=== PATIENT | female | born 2000 | race Caucasian/White ===

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

== ENCOUNTER → 2022-03-15 15:19 | Outpatient (CLI) | payer BC, SELFPAY ==
[2022-03-15 17:04] LABS: HCG,Quantitative < 2 mIU/ml (0-5.42)
[2022-03-17 11:14] LABS: Progesterone 0.2 ng/mL (.)
== END ==
LOC: LAB 15:20
PROVIDERS: PCP Internal Medicine Adolescent Medicine; Visit Provider Nurse Practitioner Obstetrics & Gynecology
DX: N92.6 Irregular menstruation, unspecified (principal); Z32.00 Encounter for pregnancy test, result unknown
CPT/HCPCS: 36415; 84144; 84702

== ENCOUNTER → 2022-04-23 08:53 | Outpatient (CLI) | payer BC, SELFPAY ==
--- NOTE | 2022-04-23 08:53 | US_ITS ---
PROCEDURE INFORMATION: Exam: US Left Breast, Complete, Abscess Evaluation Exam date and time: 04/23/2022 9:27 AM Age: 22 years old Clinical indication: Breast pain; Prior surgery; Surgery date: 6+ months; Additional info: Left breast cyst, tenderness TECHNIQUE: Imaging protocol: Left Ultrasound of the breast with image documentation. All quadrants and retroareolar regions evaluated. Exam focused on the search and evaluation for abscess. Exam is an emergent request and a non-BIRADS study. Total images: 25 COMPARISON: US BREAST LT LIMITED 12/26/2020 11:24 AM FINDINGS: Breast: No fluid collection to suggest abscess. Left axillary lymphadenopathy is present measuring up to 1.2 cm. IMPRESSION: 1. No evidence of abscess. Recommend correlation with mammography. 2. Left axillary lymphadenopathy.
--- NOTE | 2022-04-23 08:53 | US_ITS ---
FINAL REPORT CLINICAL HISTORY: Right upper quad pain FINDINGS: Sonographic images of the right upper quadrant were obtained. The pancreas is partially obscured.The liver has an unremarkable appearance.The gallbladder appears normal without evidence of gallstones.There is no evidence of biliary ductal dilatation.The common duct measures 2 mm. Limited images of the right kidney are unremarkable. IMPRESSION: Unremarkable right upper quadrant ultrasound. Reviewed, Interpreted and Dictated by Flex Jj III, MD Transcribed by Mally Duenas Authenticated and [facility]
== END ==
LOC: RAD 08:53
PROVIDERS: PCP Internal Medicine Adolescent Medicine; Visit Provider Nurse Practitioner Obstetrics & Gynecology
DX: N60.02 Solitary cyst of left breast (principal); N60.11 Diffuse cystic mastopathy of right breast; N60.12 Diffuse cystic mastopathy of left breast; N64.4 Mastodynia; R10.11 Right upper quadrant pain
CPT/HCPCS: 76641; 76705

== ENCOUNTER 2022-05-26 01:53 | Emergency (ER) | payer BC, SELFPAY ==
[2022-05-26 01:57] VITALS: BP 134/68; PULSE 106; O2SAT 99
[2022-05-26 02:00] VITALS: BP 132/76; PULSE 81; RESP 15; TEMP 36.8; O2SAT 98; BMI 30.2
[2022-05-26 02:19] LABS: Coronavirus 19, PCR Not Detected (NotDetected); Influenza A, PCR Not Detected (NotDetected); Influenza B, PCR Not Detected (NotDetected)
[2022-05-26 02:29] LABS: Adenovirus F 40/41, stool Not Detected (NotDetected); Astrovirus Not Detected (NotDetected); Campylobacter Not Detected (NotDetected); Clostridium Difficile A/B, PCR Not Detected (NotDetected); Cryptosporidium Not Detected (NotDetected); Cyclospora Cayetanesis Not Detected (NotDetected); Entamoeba histolytica Not Detected (NotDetected); Enteroaggregative E coli Not Detected (NotDetected); Enteropathogenic E coli Not Detected (NotDetected); Enterotoxigenic E coli Not Detected (NotDetected); Giardia lamblia Not Detected (NotDetected); Norovirus Not Detected (NotDetected); Plesimonas Shigalloides, PCR Not Detected (NotDetected); Rotavirus A Not Detected (NotDetected); Salmonella, PCR Not Detected (NotDetected); Sapovirus Not Detected (NotDetected); Shiga-like toxin E coli Not Detected (NotDetected); Shigella Enterovasive E coli Not Detected (NotDetected); Vibrio Cholerae Not Detected (NotDetected); Vibrio, PCR Not Detected (NotDetected); Yersinia Entercolitica, PCR Not Detected (NotDetected)
[2022-05-26 02:38] LABS: Basophils % 0.2 % (0.1-2.0); Eosinophils # 0.2 K/mm3 (0.0-0.4); Eosinophils % 1.8 % (0.1-12.0); Hematocrit 44.9 % (37.0-47.0); Lymphocytes # 1.4 K/mm3 (0.7-4.5); Lymphocytes % 12.5 % (10-50); Mean Corpuscular HGB Conc 33.5 g/dL (31.8-35.4); Mean Corpuscular Hemoglobin 29.7 pg (27.0-31.2); Mean Corpuscular Volume 88.4 fl (81-99); Mean Platelet Volume 7.1 fl (7.4-10.4); Monocytes # 0.4 K/mm3 (0.1-1.0); Monocytes % 3.5 % (1.7-9.3); Neutrophils # 9.3 K/mm3 (1.8-7.8); Neutrophils % 81.9 % (37.0-80.0); Platelet Count 361 K/mm3 (142-424); Red Blood Count 5.07 M/mm3 (4.20-5.40); Red Cell Distribution Width 12.5 % (11.5-17.5); White Blood Count 11.4 K/mm3 (4.5-13.0)
[2022-05-26 02:38] LABS: Strep Scrn Group A (Rapid) Negative (Negative)
[2022-05-26 02:44] LABS: Alanine Aminotransferase 26 U/L (12-78); Albumin Level 4.7 g/dl (3.5-5.0); Albumin/Globulin Ratio 1.5 (1.1-1.8); Alkaline Phosphatase 71 U/L (38-126); Anion Gap 12.8 mEq/L (5-15); Aspartate Amino Transferase 34 U/L (14-36); Bilirubin,Total 0.9 mg/dl (0.2-1.3); Blood Urea Nitrogen 12 mg/dl (7-17); Calcium 8.8 mg/dl (8.4-10.2); Carbon Dioxide 26 mmol/L (22.0-30.0); Chloride 101 mmol/L (98-107); Creatinine Clearance Estimated 167 mL/min (50-200); Estimated Glomerular Filt Rate 107 ml/min (>60); GFR (African American) 129 ML/MIN (>60); Globulin 3.2 g/dL (1.3-3.2); Glucose 104 mg/dl (74-100); Potassium 3.8 mmoL/L (3.5-5.1); Sodium 136 mmol/L (136-145); Total Protein,Serum 7.9 g/dl (6.3-8.2)
--- NOTE | 2022-05-26 03:16 | HMH.EDNVD ---
Discharge Plan Disposition Patient Disposition: Home, Self-Care Chief Complaint: Nausea/Vomiting/Diarrhea Prescriptions Prescriptions: No Action bupropion HCl [Wellbutrin SR] 150 mg tablet sustained-release 12 hr 150 mg PO DAILY Qty: 60 4RF hydroxyzine pamoate [Vistaril] 25 mg capsule 25 mg PO TID PRN (Reason: itching) Qty: 60 0RF Referrals Follow up/Referrals: Provider,Referral, MD [Primary Care Provider] - See instructions Clinical Impressions Clinical Impression: Gastroenteritis Instructions Patient Instructions: DI for Diarrhea and Traveler's Diarrhea -- Adult Discharge ED Provider: Thi (ED)Jose David Nausea/Vomiting/Diarrhea HPI General Chief complaint: Nausea/Vomiting/Diarrhea Stated complaint: Vomiting, Diarrhea Time Seen by Provider: 05/26/22 03:16 Mode of Arrival: Family Vehicle Source of Information: Patient, Spouse and Medical Record Limitations: No Limitations Description of Symptoms (Recalled from ER Triage Doc. by RN): 22 yo female presents with chief complaint of n/v/d x 3 hours and sinus infection symptoms x a couple of days; afebrile; patient maintains that the diarrhea is uncontrollable. Denies taking any medications other than ibuprofen earlier this date. Denies pmh. denies past surg h/o. states menses just occurred.denies abd pain except when vomiting or having a diarhhea episode History of Present Illness HPI Narrative: over the last few hrs has vomiting and diarrhea w/o fever or blood - no known exposure complaint: nausea, vomiting and diarrhea Onset (ago): hour(s) Description of Vomiting: watery Associated Abdominal Pain: Yes Location of pain: diffuse Severity: moderate Quality: cramping Associated symptoms: denies other symptoms Related Data Previous Rx's Medication Instructions Recorded bupropion HCl 150 mg tablet,12 hr 150 mg PO DAILY #60 ea 11/24/21 sustained-release (Wellbutrin SR) hydroxyzine pamoate 25 mg capsule 25 mg PO TID PRN itching #60 caps 11/24/21 (Vistaril) Allergies Allergy/AdvReac Type Severity Reaction Status Date / Time No Known Allergies Allergy Verified 04/08/22 15:01 [facility] Disclaimer: The information contained in this section may have been updated after the patient was seen, as this information can be updated by other users. Medical History (Updated 05/26/22 @ 05:25 by Jose David FRANKLIN)MD) Anxiety Depression Surgical History (Updated 04/08/22 @ 15:06 by DON Malave) History of breast surgery Family History Mother Cancer Ovarian Social History (Updated 04/08/22 @ 15:07 by DON Malave) Smoking Status: Current every day smoker tobacco type: e-cigarettes alcohol intake: current substance use type: denies use current occupational status: other Travel in the last 8 weeks: None household members: family housing: house ROS Obtained: Yes All systems reviewed & no additional complaints except as documented Physical Exam General General appearance: alert Head Head exam: normocephalic Eye Eye exam: Present PERRL and EOMI ENT ENT exam: Present mucous membranes moist Neck Neck exam: Absent trachea midline Respiratory Respiratory exam: Present normal lung sounds bilaterally Cardiovascular Cardiovascular exam: Present regular rate Abdominal Exam Abdominal exam: Present soft and tenderness; Absent guarding or rebound Abdominal tenderness: Present diffuse and moderate Extremities Exam Extremities exam: Present full ROM Neurological Exam Neurological exam: Present alert, oriented X3 and CN II-XII intact; Absent motor sensory deficit Psychiatric Psychiatric exam: Present normal affect Skin Skin exam: Absent rash Medical Decision Making Medical Records Medical records reviewed: Yes I reviewed the patient's medical records. Hay Inquiry Pt receiving controlled substance: No Vital Signs: 05/26/22 02:00 05/26
[2022-05-26 05:24] VITALS: BP 134/68; PULSE 75; RESP 19; TEMP 36.8; O2SAT 98
== END 2022-05-26 05:34 | disposition home or self-care (01) ==
PROVIDERS: Emergency Provider Emergency Medicine
DX: K52.9 Noninfective gastroenteritis and colitis, unspecified (principal); F17.290 Nicotine dependence, other tobacco product, uncomplicated
CPT/HCPCS: 80053; 85025; 87430; 87507; 96360; 96361; 96374; 96375; 99284; 99285; C9803; J2405; U0003; U0005

== ENCOUNTER 2022-05-31 18:17 | Emergency (ER) | payer BC, SELFPAY ==
[2022-05-31 18:30] VITALS: BP 105/78; PULSE 89; RESP 16; TEMP 36.7; O2SAT 98; BMI 30.2
--- NOTE | 2022-05-31 18:43 | EXP.UTC ---
Discharge Plan Disposition Patient Disposition: Home, Self-Care Condition: Good Prescriptions Prescriptions: New fluticasone propionate [Flonase Allergy Relief] 50 mcg/actuation spray,suspension 1 - 2 spray intranasal DAILY Qty: 16 0RF Rx Instructions: administer into each nostril daily No Action escitalopram oxalate 10 mg tablet 10 mg PO DAILY Label Comments: TAKE 1 TABLET BY MOUTH ONCE DAILY DIRECTED FOR 90 DAYS Referrals Follow up/Referrals: Provider,Referral, MD [Primary Care Provider] - See instructions Activity Restrictions/Add. 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 Return if needed Straight to ER if any life threatening symptoms Clinical Impressions Clinical Impression: Allergic rhinitis Qualifiers: Allergic rhinitis trigger: unspecified Allergic rhinitis seasonality: seasonal Qualified Code(s): J30.2 - Other seasonal allergic rhinitis Stand Alone Forms Stand Alone Forms: Work/School Release Instructions Patient Instructions: Allergic Rhinitis, DI for Allergic Rhinitis Discharge ED Provider: Mari Shelton Rajendra [facility] HPI General Stated complaint: Wants allergy Shot Time Seen by Provider: 05/31/22 18:43 History of Present Illness Provider Complaint: Patient states that her allergies are bothering her and sometimes when they get this bad she has to come in and get a steriod shot States that she has been having nasal congestion and at times it will run but for the last few days it has been stopped up States that she is also late on her period and wants a pregancy test Related Data Home Medications Medication Instructions Recorded Confirmed escitalopram oxalate 10 mg tablet 10 mg PO DAILY Anxiety 05/31/22 05/31/22 Previous Rx's Medication Instructions Recorded fluticasone propionate 50 1 - 2 spray intranasal DAILY #16 05/31/22 mcg/actuation nasal grams spray,suspension (Flonase Allergy Relief) Allergies Allergy/AdvReac Type Severity Reaction Status Date / Time No Known Allergies Allergy Verified 05/31/22 18:44 [facility] Disclaimer: The information contained in this section may have been updated after the patient was seen, as this information can be updated by other users. Medical History (Updated 05/31/22 @ 18:48 by Mari Shelton APRN) Anxiety Depression Surgical History History of breast surgery Family History Mother Cancer Ovarian Social History Smoking Status: Current every day smoker tobacco type: e-cigarettes alcohol intake: current substance use type: denies use current occupational status: other Travel in the last 8 weeks: None household members: family housing: house ROS Obtained: Yes All systems reviewed & no additional complaints except as documented and Yes Systems reviewed as appropriate & no additional complaints except as documented Constitutional Constitutional: Reports system reviewed and no additional complaints, except as documented and Reports as per HPI ENT Ears, Nose, Mouth, and Throat: Reports system reviewed and no additional complaints, except as documented, Reports as per HPI, Reports nasal congestion and Reports nasal discharge Cardiovascular Cardiovascular: Reports system reviewed and no additional complaints, except as documented and Reports as per HPI Respiratory Respiratory: Reports system reviewed and no additional complaints, except as documented and Reports as per HPI Gastrointestinal Gastrointestingal: Reports system reviewed and no additional complaints, except as documented and as per HPI Genitourinary Female Genitourinary: Reports system reviewed and no additional complaints, except as documented and Reports as per HPI Comments: also she is late on her
[2022-05-31 19:08] LABS: HCG Qualitative, Serum Negative (Negative)
[2022-05-31 19:39] VITALS: BP 105/78; PULSE 89; RESP 16; TEMP 36.7; O2SAT 98
== END 2022-05-31 19:39 | disposition home or self-care (01) ==
PROVIDERS: Emergency Provider Nurse Practitioner
DX: J30.2 Other seasonal allergic rhinitis (principal); F17.290 Nicotine dependence, other tobacco product, uncomplicated
CPT/HCPCS: 84703; 99212; 99214; G0463

== ENCOUNTER 2022-11-26 23:37 | Emergency (ER) | payer BC, SELFPAY ==
[2022-11-26 23:49] VITALS: RESP 18; TEMP 36.7; O2SAT 97; BMI 30.9
[2022-11-26 23:56] VITALS: BP 111/72; PULSE 113
--- NOTE | 2022-11-27 00:04 | HMH.EDGENADL ---
Discharge Plan Disposition Patient Disposition: Home, Self-Care Condition: Good Prescriptions Prescriptions: New ondansetron 4 mg tablet,disintegrating 4 mg PO Q8H PRN (Reason: nausea and vomiting) 4 Days Qty: 12 0RF Activity Restrictions/Add. Instructions Additional Instructions/Restrictions: You were evaluated in the emergency department today. Please fern picker your prescription for Zofran to take at home as needed for nausea and vomiting. Hydrate at home is much as possible. Eat a bland diet until your symptoms have resolved. Return to the emergency department for new or worsening symptoms. Follow with your primary care provider over the next 3 days for reassessment. Clinical Impressions Clinical Impression: Gastroenteritis Stand Alone Forms Stand Alone Forms: Work/School Release Instructions Patient Instructions: DI for Diarrhea and Traveler's Diarrhea -- Adult, DI for Nausea -- Adult Discharge ED Provider: Hillary Han General Adult HPI General Chief complaint: Nausea/Vomiting/Diarrhea Stated complaint: N/V,diarrhea Time Seen by Provider: 11/26/22 23:43 Mode of Arrival: Ambulatory Source of Information: Patient Limitations: No Limitations Description of Symptoms (Recalled from ER Triage Doc. by RN): Since 4am patient has had several amounts of vomiting and diarrhea. History of Present Illness HPI narrative: This patient is a 22-year-old female who denies significant past medical history presenting to the emergency department for evaluation with concern for nausea, vomiting, and diarrhea since 4 AM. Diarrhea is nonbloody and her emesis is nonbloody and nonbilious. She denies any significant abdominal pain aside from cramping associated with nausea vomiting and soreness from vomiting. She denies any other concerns at this time. She took Pepto-Bismol and Imodium at home with no relief. Related Data Previous Rx's Medication Instructions Recorded ondansetron 4 mg disintegrating 4 mg PO Q8H PRN nausea and 11/27/22 tablet vomiting 4 days #12 tabs Allergies Allergy/AdvReac Type Severity Reaction Status Date / Time No Known Allergies Allergy Verified 05/31/22 18:44 [facility] Disclaimer: The information contained in this section may have been updated after the patient was seen, as this information can be updated by other users. Medical History Anxiety Depression Surgical History History of breast surgery Family History Mother Cancer Social History Smoking Status: Current every day smoker tobacco type: e-cigarettes alcohol intake: current substance use type: denies use current occupational status: other Travel in the last 8 weeks: None household members: family housing: house ROS Obtained: Yes All systems reviewed & no additional complaints except as documented Physical Exam General General appearance: alert and in no apparent distress Head Head exam: atraumatic and normocephalic Eye Eye exam: Present normal appearance, PERRL and EOMI ENT ENT exam: Present normal exam, normal oropharynx, mucous membranes moist and normal external ear exam Neck Neck exam: Present normal inspection, full ROM and trachea midline; Absent tenderness Chest Chest inspection: Present normal inspection and symmetric chest wall rise; Absent tenderness Respiratory Respiratory exam: Present normal lung sounds bilaterally; Absent respiratory distress, wheezes, stridor or accessory muscle use Cardiovascular Cardiovascular exam: Present regular rate and normal rhythm Abdominal Exam Abdominal exam: Present soft; Absent distention, tenderness or guarding Extremities Exam Extremities exam: Present normal inspection, full ROM and normal capillary refill; Absent tenderness or edema Back E
[2022-11-27 00:05] LABS: Microscopic, Urine URINE MICROSCOPIC (MICROSCOPIC)
[2022-11-27 00:12] LABS: Appearance,Urine CLEAR (Clear); Blood, Urine TRACE-I (Negative); Color,Urine YELLOW (Yellow); Glucose,Urine (UA) Negative (Negative); Ketones,Urine Negative (Negative); Leukocyte Esterase,Urine Negative (Negative); Nitrate,Urine Negative (Negative); Protein,Urine TRACE (Negative); Specific Gravity, Urine 1.025 (1.005-1.030); Urobilinogen,Urine 0.2 EU/dl (0.2)
[2022-11-27 00:14] LABS: Bilirubin,Urine 1+ (Negative)
[2022-11-27 00:16] LABS: RBC,Urine Occasional #/hpf (0-3)
[2022-11-27 00:47] LABS: Urine Pregnancy, HCG Qual. Negative (Negative)
[2022-11-27 00:53] VITALS: BP 115/75; PULSE 90; RESP 18; TEMP 36.8
== END 2022-11-27 00:57 | disposition home or self-care (01) ==
PROVIDERS: Emergency Provider Emergency Medicine
DX: K52.9 Noninfective gastroenteritis and colitis, unspecified (principal); R11.2 Nausea with vomiting, unspecified; F17.290 Nicotine dependence, other tobacco product, uncomplicated; F41.9 Anxiety disorder, unspecified; F32.A Depression, unspecified
CPT/HCPCS: 81001; 81025; 99283

== ENCOUNTER 2023-01-07 09:27 | Emergency (ER) | payer BC, SELFPAY ==
[2023-01-07 10:30] VITALS: BP 133/88; PULSE 86; RESP 18; TEMP 36.7; O2SAT 98; BMI 33.8
--- NOTE | 2023-01-07 10:53 | EXP.UTC ---
Discharge Plan Disposition Patient Disposition: Home, Self-Care Condition: Good Prescriptions Prescriptions: New prednisone 10 mg tablet 10 mg PO BID 3 Days Qty: 6 0RF azithromycin [Zithromax] 250 mg tablet 250 mg PO UD DOSE PK Qty: 6 0RF Rx Instructions: Take two (2) tablets today, then one (1) tablet days #2 thru #5 [id number] [Bromfed DM] 2-30-10 mg/5 mL Syrup 5 ml PO Q6H PRN (Reason: Cough) Qty: 240 0RF Referrals Follow up/Referrals: Provider,Referral, MD [Primary Care Provider] - See instructions Activity Restrictions/Add. Instructions Additional Instructions/Restrictions: Drink plenty of fluids. Take tylenol or ibuprofen for pain or fever. Take the medications as directed. Follow up with your regular doctor. GO TO THE ER FOR ANY WORSENING SYMPTOMS Clinical Impressions Clinical Impression: Pharyngitis, Sinusitis, Acute viral syndrome Stand Alone Forms Stand Alone Forms: Work/School Release Instructions Patient Instructions: DI for Pharyngitis/Tonsillopharyngitis -- Adult, DI for Sinusitis Discharge ED Provider: Preet Humphries [facility] General Stated complaint: drainage sore throat Mode of Arrival: Ambulatory Source of Information: Patient Limitations: No Limitations Time Seen by Provider: 01/07/23 10:53 Description of Symptoms (Recalled from Triage Doc. by RN): sore throat, stomach ache, stuffy nose, MACDONALD, and had a fever. HEENT Symptoms (Recalled from RN notes): Yes Resp Symptoms (Recalled from RN notes): No Skin Symptoms (Recalled from RN notes): No MS Symptoms (Recalled from RN notes): No Functional Status (Recalled from RN notes): n/a History of Present Illness Provider Complaint: She states that for the past 2 days she has had sore throat, GI upset, stuffy nose, MACDONALD, and a low grade fever. Related Data Previous Rx's Medication Instructions Recorded azithromycin 250 mg tablet 250 mg PO UD DOSE PK #6 tabs 01/07/23 (Zithromax) [id number]-gjkjsdtvbowoxgv-DP 5 ml PO Q6H PRN Cough #240 mL 01/07/23 2 mg-30 mg-10 mg/5 mL oral syrup (Bromfed DM) prednisone 10 mg tablet 10 mg PO BID 3 days #6 tabs 01/07/23 Allergies Allergy/AdvReac Type Severity Reaction Status Date / Time No Known Allergies Allergy Verified 01/07/23 10:51 Worker's Comp Is this a Worker's Comp case?: No [facility] Disclaimer: The information contained in this section may have been updated after the patient was seen, as this information can be updated by other users. Medical History Anxiety Depression Surgical History History of breast surgery Family History Mother Cancer Social History Smoking Status: Current every day smoker tobacco type: e-cigarettes alcohol intake: current substance use type: denies use current occupational status: other Travel in the last 8 weeks: None household members: family housing: house ROS Obtained: Yes All systems reviewed & no additional complaints except as documented Constitutional Constitutional: Reports chills and Reports fever(s) Eyes Eyes: Denies eye discharge ENT Ears, Nose, Mouth, and Throat: Reports as per HPI Cardiovascular Cardiovascular: Denies chest pain Respiratory Respiratory: Denies chest congestion and Reports cough Gastrointestinal Gastrointestingal: Reports nausea; Denies abdominal pain, constipation, cramping, diarrhea or vomiting Musculoskeletal Musculoskeletal: Denies arthralgias Integumentary/Breasts Skin/Breast: Denies rash Neurologic Neurologic: Denies paresthesias Physical Exam General General appearance: alert and in no apparent distress Head Head exam: atraumatic, normocephalic and normal inspection Eye Eye exam: Present normal appearance, PERRL and EOMI EN
[2023-01-07 10:59] LABS: UTC Strep Screen (Rapid) Negative (Negative)
[2023-01-07 11:20] VITALS: BP 133/88; PULSE 86; RESP 18; TEMP 36.7; O2SAT 98
== END 2023-01-07 11:20 | disposition home or self-care (01) ==
PROVIDERS: Emergency Provider Nurse Practitioner Family
DX: J01.90 Acute sinusitis, unspecified (principal); J02.9 Acute pharyngitis, unspecified; R09.82 Postnasal drip; R10.9 Unspecified abdominal pain; R50.9 Fever, unspecified; R51.9 Headache, unspecified; F17.290 Nicotine dependence, other tobacco product, uncomplicated
CPT/HCPCS: 87635; 87880; 99212; 99214; G0463

== ENCOUNTER 2023-03-06 12:59 | Emergency (ER) | payer BC, SELFPAY ==
[2023-03-06 13:15] VITALS: BP 124/82; PULSE 104; RESP 18; TEMP 36.9; O2SAT 100; BMI 33.7
--- NOTE | 2023-03-06 13:19 | ED_ITS ---
Discharge Plan Disposition Patient Disposition: Home, Self-Care Condition: Good Prescriptions Prescriptions: New prednisone 10 mg tablet 10 mg PO BID 3 Days Qty: 6 0RF amoxicillin [amoxicillin] 875 mg tablet 875 mg PO Q12H Qty: 20 0RF [id number]-maubcazfv-FT [Bromfed DM] 2-30-10 mg/5 mL Syrup 5 ml PO Q6H PRN (Reason: Cough) Qty: 240 0RF No Action Vraylar 1.5 mg capsule 1.5 mg PO DAILY Qty: 30 2RF Referrals Follow up/Referrals: Denice Lancaster PA [Primary Care Provider] - See instructions Activity Restrictions/Add. Instructions Additional Instructions/Restrictions: Drink plenty of fluids. Take tylenol or ibuprofen for pain or fever. Take the medications as directed. Follow up with your regular doctor. GO TO THE ER FOR ANY WORSENING SYMPTOMS Clinical Impressions Clinical Impression: Strep throat Stand Alone Forms Stand Alone Forms: Work/School Release Instructions Patient Instructions: Strep Throat, DI for Strep Throat Discharge ED Provider: Preet Humphries [facility] General Stated complaint: Sore throat,cough,body aches Time Seen by Provider: 03/06/23 13:19 History of Present Illness Provider Complaint: She states that for the past 2 days she has had sore throat, chills, low grade fever and malaise. Related Data Previous Rx's Medication Instructions Recorded cariprazine 1.5 mg capsule 1.5 mg PO DAILY #30 caps 02/21/23 (Vraylar) amoxicillin 875 mg tablet 875 mg PO Q12H #20 tabs 03/06/23 zwizthizlvnqavf-ehtcxowqeycxooy-PG 5 ml PO Q6H PRN Cough #240 mL 03/06/23 2 mg-30 mg-10 mg/5 mL oral syrup (Bromfed DM) prednisone 10 mg tablet 10 mg PO BID 3 days #6 tabs 03/06/23 Allergies Allergy/AdvReac Type Severity Reaction Status Date / Time No Known Allergies Allergy Verified 03/06/23 13:27 [facility] Disclaimer: The information contained in this section may have been updated after the patient was seen, as this information can be updated by other users. Medical History (Updated 03/06/23 @ 13:56 by Preet Humphries APRN) Anxiety Depression Traumatic brain injury Surgical History History of breast surgery Family History Mother Cancer Social History Smoking Status: Current every day smoker tobacco type: e-cigarettes alcohol intake: current substance use type: denies use current occupational status: other Travel in the last 8 weeks: None household members: family housing: house ROS Obtained: Yes All systems reviewed & no additional complaints except as documented Constitutional Constitutional: Reports chills and Reports fever(s) Eyes Eyes: Denies eye discharge ENT Ears, Nose, Mouth, and Throat: Reports as per HPI Cardiovascular Cardiovascular: Denies chest pain Respiratory Respiratory: Denies chest congestion and Reports cough Gastrointestinal Gastrointestingal: Reports nausea; Denies abdominal pain, constipation, cramping, diarrhea or vomiting Musculoskeletal Musculoskeletal: Denies arthralgias Integumentary/Breasts Skin/Breast: Denies rash Neurologic Neurologic: Denies paresthesias Physical Exam General General appearance: alert and in no apparent distress Head Head exam: atraumatic, normocephalic and normal inspection Eye Eye exam: Present normal appearance, PERRL and EOMI ENT ENT exam: Present mucous membranes moist and normal external ear exam Expanded ENT Exam TM/Canal exam: Bilateral TM: erythema and bulging Nose exam: Absent sinus tenderness Mouth exam: Present normal external inspection; Absent drooling Teeth exam: Present normal inspection Throat exam: Present tonsillar erythema, tonsillomegaly and tonsillar exudate Neck Neck exam: Present normal inspection, full ROM and trachea midline; Absent tenderness, meningismus or lymphadenopathy Chest Chest inspection: Present normal inspection and symmetric chest wall rise; Absent tenderness Respiratory Respiratory exam: Present normal lung sounds bilaterally; Absent respiratory distress, wheezes, stridor or accessory muscle use Cardiovascular Cardiovascular exam: Present regular rate and normal rhythm; Absent systolic murmur or diastolic murmur Abdominal Exam Abdominal exam: Present soft and normal bowel sounds; Absent distention, tenderness, guarding, rebound or rigidity Extremities Exam Extremities exam: Present normal inspection and normal capillary refill; Absent calf tenderness Back Exam Back exam: Present normal inspection and full ROM; Absent tenderness, CVA tenderness (R) or CVA tenderness (L) Neurological Exam Neurological exam: Present alert, oriented X3 and CN II-XII intact Psychiatric Psychiatric exam: Present normal affect and normal mood Skin Skin exam: Present warm, dry, intact and normal color Medical Decision Making Medical Records Medical records reviewed: No I reviewed the patient's medical records. Hay Inquiry Pt receiving controlled substance: No Lab Data Lab results reviewed: Yes I reviewed the patient's lab results.
[2023-03-06 13:41] LABS: UTC Influenza A Antigen Negative (Negative); UTC Influenza B Antigen Negative (Negative); UTC Strep Screen (Rapid) Positive (Negative)
[2023-03-06 14:05] VITALS: BP 124/82; PULSE 104; RESP 18; TEMP 36.9; O2SAT 100
== END 2023-03-06 14:05 | disposition home or self-care (01) ==
PROVIDERS: Emergency Provider Nurse Practitioner Family; PCP Physician Assistant
DX: J02.0 Streptococcal pharyngitis (principal); R07.0 Pain in throat; R50.9 Fever, unspecified; R05.9 Cough, unspecified; R53.81 Other malaise; F17.290 Nicotine dependence, other tobacco product, uncomplicated
CPT/HCPCS: 87804; 87880; 99212; 99214; G0463

== ENCOUNTER 2023-03-09 11:48 | Outpatient (CLI) | payer BC, SELFPAY ==
[2023-03-09 12:08] LABS: Basophils # 0.1 K/mm3 (0-0.2); Eosinophils # 0.2 K/mm3 (0.0-0.4); Eosinophils % 2.5 % (0.1-12.0); Hematocrit 41.5 % (37.0-47.0); Lymphocytes # 4.6 K/mm3 (0.7-4.5); Lymphocytes % 60.4 % (10-50); Mean Corpuscular HGB Conc 33.8 g/dL (31.8-35.4); Mean Corpuscular Hemoglobin 29.9 pg (27.0-31.2); Mean Corpuscular Volume 88.6 fl (81-99); Mean Platelet Volume 7.4 fl (7.4-10.4); Monocytes # 0.4 K/mm3 (0.1-1.0); Monocytes % 5.8 % (1.7-9.3); Neutrophils # 2.3 K/mm3 (1.8-7.8); Neutrophils % 30.4 % (37.0-80.0); Platelet Count 373 K/mm3 (142-424); Red Blood Count 4.68 M/mm3 (4.20-5.40); Red Cell Distribution Width 13.3 % (11.5-17.5); White Blood Count 7.6 K/mm3 (4.8-10.8)
[2023-03-09 12:10] LABS: MANUAL DIFFERENTIAL MANUAL DIFFERENTIAL (MANUAL DIFF)
[2023-03-09 12:11] LABS: Alanine Aminotransferase 22 U/L (12-78); Albumin Level 4.1 g/dl (3.5-5.0); Albumin/Globulin Ratio 1.4 (1.1-1.8); Alkaline Phosphatase 68 U/L (38-126); Anion Gap 10.5 mEq/L (5-15); Aspartate Amino Transferase 25 U/L (14-36); Bilirubin,Total 0.3 mg/dl (0.2-1.3); Blood Urea Nitrogen 11 mg/dl (7-17); Calcium 9.4 mg/dl (8.4-10.2); Carbon Dioxide 26 mmol/L (22.0-30.0); Chloride 107 mmol/L (98-107); Chol/HDL Ratio 2.3 (1-3.5); Cholesterol 164 mg/dl (140-200); Estimated Glomerular Filt Rate 126 ml/min (>60); GFR (African American) 153 ML/MIN (>60); Globulin 2.9 g/dL (1.3-3.2); Glucose 86 mg/dl (74-100); HDL Cholesterol 71 mg/dl (40-60); Potassium 4.5 mmoL/L (3.5-5.1); Sodium 139 mmol/L (136-145); Triglycerides 248 mg/dl (30-150); VLDL Cholesterol 50 mg/dL (0-40)
[2023-03-09 12:25] LABS: Direct LDL Cholesterol 59.99 mg/dL (100-129)
[2023-03-09 12:31] LABS: 25-OH Vitamin D, Total 17.4 ng/mL (30-100)
[2023-03-09 12:42] LABS: Thyroid Stimulating Hormone 1.91 uIU/mL (0.465-4.68)
[2023-03-09 12:56] LABS: Lymphocytes % 61 % (10-50); Monocytes % 6 % (2-9); Neutrophils % 33 % (42-76); Platelet Estimate Normal; RBC Morphology Normal; Total Cells Counted 100
[2023-03-09 13:01] LABS: Vitamin B12 354 pg/mL (239-931)
== END 2023-03-09 23:59 ==
LOC: LAB.DROPOF 11:48
PROVIDERS: PCP Physician Assistant; Visit Provider Physician Assistant
DX: R53.83 Other fatigue (principal); H57.9 Unspecified disorder of eye and adnexa; E55.9 Vitamin D deficiency, unspecified; E66.9 Obesity, unspecified; Z68.33 Body mass index [BMI] 33.0-33.9, adult
CPT/HCPCS: 80053; 80061; 82306; 82607; 84443; 85007; 85025

== ENCOUNTER 2023-03-11 07:19 | Emergency (ER) | payer BC, SELFPAY ==
[2023-03-11 07:32] VITALS: BP 148/92; PULSE 107; RESP 16; TEMP 36.9; O2SAT 98; BMI 33.6
--- NOTE | 2023-03-11 07:43 | ED_ITS ---
Discharge Plan Disposition Patient Disposition: Home, Self-Care Prescriptions Prescriptions: New ondansetron 4 mg tablet,disintegrating 4 mg PO Q8H PRN (Reason: nausea and vomiting) 4 Days Qty: 12 0RF No Action Vraylar 1.5 mg capsule 1.5 mg PO DAILY Qty: 30 2RF cholecalciferol (vitamin D3) 50 mcg (2,000 unit) capsule 50 mcg PO DAILY Qty: 90 3RF ergocalciferol (vitamin D2) 1,250 mcg (50,000 unit) capsule 1,250 mcg PO WEEKLY Qty: 14 3RF amoxicillin [amoxicillin] 875 mg tablet 875 mg PO Q12H Qty: 20 0RF dvjdxkafskhagfe-gytumqioz-VZ [Bromfed DM] 2-30-10 mg/5 mL Syrup 5 ml PO Q6H PRN (Reason: Cough) Qty: 240 0RF Referrals Follow up/Referrals: Denice Lancaster PA [Primary Care Provider] - See instructions Activity Restrictions/Add. Instructions Additional Instructions/Restrictions: You were evaluated in the emergency department today. Please chicken picker your pres cription for Zofran and take as needed for nausea and vomiting. Hydrate is much as possible. Eat a bland diet until your symptoms have resolved. Return to the emergency department for new or worsening symptoms. Clinical Impressions Clinical Impression: Nausea vomiting and diarrhea, Abdominal pain, suprapubic, COVID-19 Stand Alone Forms Stand Alone Forms: Work/School Release Instructions Patient Instructions: DI for Diarrhea and Traveler's Diarrhea -- Adult, DI for Acute Abdominal Pain, DI for Nausea -- Adult, DI for COVID-19 (Suspected or Confirmed ) Discharge ED Provider: Hillary Han General Adult HPI General Chief complaint: Abdominal Pain Stated complaint: vomiting and Diarrhea Time Seen by Provider: 03/11/23 07:32 History of Present Illness HPI narrative: This patient is a 23-year-old female with PCOS presenting to the emergency department for evaluation with concern for nausea, vomiting, diarrhea, and lower abdominal pain. Patient states that she woke up around 1:00 in the morning with nausea and vomiting and states that she is vomited multiple times since then. She is also had multiple episodes of loose, watery stools. Her emesis is nonbloody nonbilious and diarrhea is nonbloody. She denies any abnormal vaginal discharge, urinary symptoms, or other concerns. She states she was having some lower abdominal pain that started after the vomiting. No other concerns noted at this time. Related Data Previous Rx's Medication Instructions Recorded cariprazine 1.5 mg capsule 1.5 mg PO DAILY #30 caps 02/21/23 (Vraylar) amoxicillin 875 mg tablet 875 mg PO Q12H #20 tabs 03/06/23 nkvdgtsuekkdiim-hwqbvgaeocebmyr-AF 5 ml PO Q6H PRN Cough #240 mL 03/06/23 2 mg-30 mg-10 mg/5 mL oral syrup (Bromfed DM) cholecalciferol (vitamin D3) 50 50 mcg PO DAILY #90 caps 03/09/23 mcg (2,000 unit) capsule ergocalciferol (vitamin D2) 1,250 1,250 mcg PO WEEKLY #14 caps 03/09/23 mcg (50,000 unit) capsule ondansetron 4 mg disintegrating 4 mg PO Q8H PRN nausea and 03/11/23 tablet vomiting 4 days #12 tabs Allergies Allergy/AdvReac Type Severity Reaction Status Date / Time No Known Allergies Allergy Verified 03/09/23 08:41 [facility] Disclaimer: The information contained in this section may have been updated after the patient was seen, as this information can be updated by other users. Medical History Anxiety Depression Traumatic brain injury Surgical History History of breast surgery Family History Mother Cancer Social History Smoking Status: Current every day smoker tobacco type: e-cigarettes alcohol intake: current substance use type: denies use current occupational status: other Travel in the last 8 weeks: None household members: family housing: house ROS Obtained: Yes All systems reviewed & no additional complaints except as documented Physical Exam General General appearance: alert and in no apparent distress Head Head exam: atraumatic and normocephalic Eye Eye exam: Present normal appearance, PERRL and EOMI ENT ENT exam: Present normal exam, normal oropharynx, mucous membranes moist and normal external ear exam Neck Neck exam: Present normal inspection, full ROM and trachea midline; Absent tenderness Chest Chest inspection: Present normal inspection and symmetric chest wall rise; Ab sent tenderness Respiratory Respiratory exam: Present normal lung sounds bilaterally; Absent respiratory distress, wheezes, stridor or accessory muscle use Cardiovascular Cardiovascular exam: Present regular rate and normal rhythm Abdominal Exam Abdominal exam: Present soft, tenderness (suprapubic, mild) and normal bowel sounds; Absent distention, guarding, rebound or rigidity Extremities Exam Extremities exam: Present normal inspection, full ROM and normal capillary refill; Absent tenderness or edema Back Exam Back exam: Present normal inspection and full ROM; Absent tenderness Neurological Exam Neurological exam: Present alert, oriented X3, CN II-XII intact and normal gait; Absent motor sensory deficit Psychiatric Psychiatric exam: Present normal affect and normal mood Skin Skin exam: Present warm and dry Medical Decision Making Medical Records Medical records reviewed: Yes I reviewed the patient's medical records. Hay Inquiry Pt receiving controlled substance: No Vital Signs: 03/11/23 07:32 03/11/23 08:30 03/11/23 09:46 Temperature 98.4 F 98.4 F Temperature Source Oral Oral Pulse Rate 87 77 Pulse Rate [Left] 107 H Respiratory Rate 16 18 Blood Pressure 101/57 L 104/61 L Blood Pressure [Right Arm] 148/92 H Blood Pressure Mean [Right Arm] 110 Blood Pressure Source Automatic Cuff Blood Pressure Source [Right Arm] Automatic Cuff Blood Pressure Position Sitting Blood Pressure Position [Right Arm] Sitting 02 Sat by Pulse Oximetry 98 98 Oxygen Delivery Method Room Air Room Air Room Air Lab Data Lab results reviewed: Yes I reviewed the patient's lab results. Lab Results 03/11/23 07:41: WBC 12.2 H D, RBC 4.98, Hgb 14.8, Hct 43.4, MCV 87.1, MCH 29.8, MCHC 34.2, RDW 13.1, Plt Count 416, MPV 7.6, Neut % (Auto) 82.1 H, Lymph % (Auto) 11.0, [place] % (Auto) 3.7, Eos % (Auto) 2.7, Baso % (Auto) 0.5, Neut # (Auto) 10.0 H, Lymph # (Auto) 1.3, [place] # (Auto) 0.5, Eos # (Auto) 0.3, Baso # (Auto) 0.1, Sodium 138, Potassium 4.5, Chloride 106, Carbon Dioxide 26, Anion Gap 10.5, BUN 13, Creatinine 0.60, Estimated Creat Clear 208, Estimated GFR 126, Est GFR ( Amer) 153, Glucose 108 H, Calcium 9.3, Total Bilirubin 0.5, AST 36 D, ALT 40 D, Alkaline Phosphatase 81, Total Protein 8.0, Albumin 4.5, Globulin 3.5 H, Albumin/Globulin Ratio 1.3, Serum HCG, Qual Negative 03/11/23 07:52: SARS-CoV-2 (PCR) Detected A, Influenza A Untype (PCR) Not detected, Influenza Type B (PCR) Not detected 03/11/23 07:41 03/11/23 07:41 Orders (Tests/Meds): ED MEDICATIONS Discontinued Medications Generic Name Dose Route Start Last Admin Trade Name Freq PRN Reason Stop Dose Admin Acetaminophen 1,000 mg 03/11/23 07:36 03/11/23 07:58 Acetaminophen 1,000mg/100ml Vial IV 03/11/23 07:37 1,000 mg ONCE ONE Administration Lactated Ringer's 1,000 mls @ 999 mls/hr 03/11/23 07:36 03/11/23 07:58 Lactated Ringer's 1000 Ml Bag IV 03/11/23 08:36 999 mls/hr .Q1H1M ONE Administration Ketorolac Tromethamine 15 mg 03/11/23 08:21 03/11/23 08:24 Ketorolac 30mg/Ml Vial IV 03/11/23 08:22 15 mg ONCE ONE Administration Ondansetron HCl 4 mg 03/11/23 07:36 03/11/23 07:58 Ondansetron 4mg/2ml Vial IV 03/11/23 07:37 4 mg ONCE ONE Administration ORDERS Category Date Time Status Complete Blood Count Auto Diff Stat Lab 03/11/23 07:41 Completed Comprehensive Metabolic Panel Stat Lab 03/11/23 07:41 Completed Diarrhea 23 Panel, PCR Stat Lab 03/11/23 07:51 Received HCG Qualitative, Serum Stat Lab 03/11/23 07:41 Completed Rapid PCR Covid and Flu A/B Stat Lab 03/11/23 07:52 Completed Urinalysis and Microscopic Stat Lab 02/02/24 07:56 Ordered Medical Decision Narrative: In summary, this patient is a 23-year-old female presenting to the Emergency Department for evaluation of nausea, vomiting, diarrhea, and now lower abdominal pain. Differential diagnoses considered include but are not limited to gastroenteritis, colitis, pyelonephritis, dehydration, appendicitis, cystitis. Ruling out the most morbid conditions drove assessment. On exam, the patient is well-appearing with benign abdominal exam aside from very mild suprapubic tenderness to deep palpation. Workup included CBC, CMP, diarrhea panel, test, viral swab. Patient was given a bolus of IV fluids as well as IV acetaminophen and Zofran. At this time, low suspicion for surgical intra-abdominal pathology, such as appendicitis, given benign abdominal exam. She only has mild suprapubic tenderness to deep palpation, which started after multiple episodes of vomiting. On reassessment, the patient is resting comfortably. She had improved symptoms after administration of interventions above. She is able to tolerate oral intake. Patient did test positive for COVID-19. She has mild leukocytosis, but workup is otherwise reassuring. Abdominal exam remains benign without concern for surgical intra-abdominal pathology based on clinical exam. Patient provided a stool sample, which is pending. At this time, feel she likely has viral syndrome secondary to COVID-19. I feel that she is appropriate for discharge with a prescription for Zofran to take as needed and instructions for supportive management. She was given instructions to close a patient follow-up, strict return precautions, and she was discharged in stable condition after all questions were answered. Critical Care Critical Care Time Critical Care Time: No
[2023-03-11 07:56] LABS: Adenovirus F 40/41, stool Not Detected (NotDetected); Campylobacter Not Detected (NotDetected); Clostridium Difficile A/B, PCR Not Detected (NotDetected); Cryptosporidium Not Detected (NotDetected); Cyclospora Cayetanesis Not Detected (NotDetected); Entamoeba histolytica Not Detected (NotDetected); Enteroaggregative E coli Not Detected (NotDetected); Enteropathogenic E coli Not Detected (NotDetected); Enterotoxigenic E coli Not Detected (NotDetected); Giardia lamblia Not Detected (NotDetected); Plesimonas Shigalloides, PCR Not Detected (NotDetected); Rotavirus A Not Detected (NotDetected); Salmonella, PCR Not Detected (NotDetected); Sapovirus Not Detected (NotDetected); Shiga-like toxin E coli Not Detected (NotDetected); Shigella Enterovasive E coli Not Detected (NotDetected); Vibrio Cholerae Not Detected (NotDetected); Vibrio, PCR Not Detected (NotDetected); Yersinia Entercolitica, PCR Not Detected (NotDetected)
--- NOTE | 2023-03-11 07:57 | PC.NURSE ---
[facility] called to advise they would need a new urine sample due to urine spilling in bag
[2023-03-11 07:58] LABS: Influenza A, PCR Not Detected (NotDetected); Influenza B, PCR Not Detected (NotDetected)
[2023-03-11 07:58] LABS: Hematocrit 43.4 % (37.0-47.0); Hemoglobin 14.8 g/dL (12.2-16.2); Mean Corpuscular HGB Conc 34.2 g/dL (31.8-35.4); Mean Corpuscular Hemoglobin 29.8 pg (27.0-31.2); Mean Corpuscular Volume 87.1 fl (81-99); Red Blood Count 4.98 M/mm3 (4.20-5.40); Red Cell Distribution Width 13.1 % (11.5-17.5); White Blood Count 12.2 K/mm3 (4.8-10.8)
[2023-03-11] MEDS: ACETAMINOPHEN 1,000MG/100ML VIAL 1000 MG IV (07:58)
[2023-03-11] MEDS: LACTATED RINGERS 1000ML 1,000 ML 999 ML IV (07:58)
[2023-03-11] MEDS: ONDANSETRON 4MG/2ML VIAL 4 MG IV (07:58)
[2023-03-11 07:59] LABS: Basophils # 0.1 K/mm3 (0-0.2); Basophils % 0.5 % (0.1-2.0); Eosinophils # 0.3 K/mm3 (0.0-0.4); Eosinophils % 2.7 % (0.1-12.0); Lymphocytes # 1.3 K/mm3 (0.7-4.5); Mean Platelet Volume 7.6 fl (7.4-10.4); Monocytes # 0.5 K/mm3 (0.1-1.0); Monocytes % 3.7 % (1.7-9.3); Neutrophils % 82.1 % (37.0-80.0); Platelet Count 416 K/mm3 (142-424)
[2023-03-11 08:16] LABS: Chloride 106 mmol/L (98-107)
[2023-03-11 08:17] LABS: Potassium 4.5 mmoL/L (3.5-5.1); Sodium 138 mmol/L (136-145)
[2023-03-11 08:19] LABS: Alanine Aminotransferase 40 U/L (12-78); Aspartate Amino Transferase 36 U/L (14-36); Blood Urea Nitrogen 13 mg/dl (7-17); Creatinine Clearance Estimated 208 mL/min (50-200); Estimated Glomerular Filt Rate 126 ml/min (>60); GFR (African American) 153 ML/MIN (>60); HCG Qualitative, Serum Negative (Negative)
[2023-03-11 08:20] LABS: Albumin Level 4.5 g/dl (3.5-5.0); Albumin/Globulin Ratio 1.3 (1.1-1.8); Alkaline Phosphatase 81 U/L (38-126); Anion Gap 10.5 mEq/L (5-15); Bilirubin,Total 0.5 mg/dl (0.2-1.3); Calcium 9.3 mg/dl (8.4-10.2); Carbon Dioxide 26 mmol/L (22.0-30.0); Globulin 3.5 g/dL (1.3-3.2); Glucose 108 mg/dl (74-100)
[2023-03-11] MEDS: KETOROLAC 30MG/ML VIAL 15 MG IV (08:24)
[2023-03-11 08:30] VITALS: BP 101/57; PULSE 87; O2SAT 98
[2023-03-11 08:48] LABS: Coronavirus 19, PCR Detected (NotDetected)
--- NOTE | 2023-03-11 08:59 | PC.NURSE ---
Rounded on pt. No needs voiced. call light within reach.
--- NOTE | 2023-03-11 09:06 | PC.NURSE ---
Water and crackers provided for PO challenge
--- NOTE | 2023-03-11 09:22 | PC.NURSE ---
Pt advised she was able to eat and drink with no problems.
[2023-03-11 09:46] VITALS: BP 104/61; PULSE 77; RESP 18; TEMP 36.9; O2SAT 97
[2023-03-15 21:34] LABS: Astrovirus Detected (NotDetected)
[2023-03-15 21:36] LABS: Norovirus Detected (NotDetected)
--- NOTE | 2023-03-15 21:42 | PC.NURSE ---
notified Dr pelaez of diarrhea panel positive for astrovirus and norovirus, no new orders
== END 2023-03-11 09:50 | disposition home or self-care (01) ==
PROVIDERS: Emergency Provider Emergency Medicine; PCP Physician Assistant
DX: U07.1 COVID-19 (principal); R10.30 Lower abdominal pain, unspecified; R11.2 Nausea with vomiting, unspecified; R19.7 Diarrhea, unspecified; D72.829 Elevated white blood cell count, unspecified; E28.2 Polycystic ovarian syndrome; F17.290 Nicotine dependence, other tobacco product, uncomplicated
CPT/HCPCS: 80053; 84703; 85025; 87507; 87636; 96361; 96374; 96375; 99285; J0131; J2405

== ENCOUNTER 2023-10-27 14:36 | Emergency (ER) | payer BC, SELFPAY ==
[2023-10-27 14:52] VITALS: BP 124/82; PULSE 70; RESP 20; TEMP 36.7; O2SAT 97; BMI 30.9
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
[2023-10-27 15:01] LABS: UTC Strep Screen (Rapid) Positive (Negative)
[2023-10-27 15:13] VITALS: BP 124/82; PULSE 70; RESP 20; TEMP 36.7; O2SAT 97
== END 2023-10-27 15:15 | disposition home or self-care (01) ==
PROVIDERS: Emergency Provider Nurse Practitioner
DX: J02.0 Streptococcal pharyngitis (principal); R07.0 Pain in throat
CPT/HCPCS: 87880; 99212; 99214; G0463

== ENCOUNTER 2023-11-12 18:06 | Emergency (ER) | payer BC, SELFPAY ==
[2023-11-12 18:27] VITALS: BP 0/0; PULSE 0; RESP 0; TEMP -17.7; TEMP 0
== END 2023-11-12 18:25 | disposition home or self-care (01) ==
LOC: UTC 18:16
PROVIDERS: Emergency Provider Nurse Practitioner Family
DX: Z53.21 Procedure and treatment not carried out due to patient leaving prior to being seen by health care provider (principal)

== ENCOUNTER 2023-11-17 10:33 | Emergency (ER) | payer BC, SELFPAY ==
[2023-11-17 10:48] VITALS: BP 129/69; PULSE 88; RESP 16; TEMP 36.9; O2SAT 98; BMI 30.4
[2023-11-17 10:53] LABS: UTC Strep Screen (Rapid) Negative (Negative)
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
[2023-11-17 11:11] VITALS: BP 129/69; PULSE 88; RESP 16; TEMP 36.9; O2SAT 98
== END 2023-11-17 11:12 | disposition home or self-care (01) ==
PROVIDERS: Emergency Provider Nurse Practitioner Family
DX: J02.9 Acute pharyngitis, unspecified (principal); R09.89 Other specified symptoms and signs involving the circulatory and respiratory systems; R53.81 Other malaise; R68.83 Chills (without fever)
CPT/HCPCS: 87880; 99212; G0381

== ENCOUNTER 2024-01-15 10:03 | Emergency (ER) | payer BC, MEDICAID, SELFPAY ==
[2024-01-15 11:10] VITALS: BP 131/77; PULSE 98; RESP 19; TEMP 37.2; O2SAT 99; BMI 30.8
--- NOTE | 2024-01-15 11:26 | EXP.UTC ---
Discharge Plan Disposition Patient Disposition: Home, Self-Care Condition: Good Prescriptions Prescriptions: No Action hydroxyzine pamoate 50 mg capsule 50 mg PO DAILY Patient Comments: TAKE ONE CAPSULE BY MOUTH TWICE DAILY NEEDED escitalopram oxalate 10 mg tablet 10 mg PO DAILY Patient Comments: TAKE ONE TABLET BY MOUTH EVERY EVENING Referrals Follow up/Referrals: Provider,Referral, [Primary Care Provider] - See instructions Activity Restrictions/Add. Instructions Additional Instructions/Restrictions: No sign of a bacterial infection. Likely viral. Viruses can take 7-14 days to run their course. Nasal saline and bulb syringe or nose Carey to remove nasal drainage to help with nasal congestion. Hard to eat, drink, sleep with nasal congestion so important to keep this cleaned out. Monitor temp. Tylenol or Motrin as needed for pain or fever Encourage fluids, water, Gatorade, Powerade, Pedialyte if /toddler/child Warm salt water gargles Warm fluids Sore throat lozenges Sleep elevated Humidifier/vaporizer Follow-up immediately for new or worsening symptoms or no noticeable improvement over the next 48-72 hours. Clinical Impressions Clinical Impression: Upper respiratory infection, viral Stand Alone Forms Stand Alone Forms: Work/School Release Instructions Patient Instructions: DI for Viral Upper Respiratory Infection -- Adult Print Language Print Language: Mongolian Discharge ED Provider: Zachery ([facility] [place] General Stated complaint: sore throat, congestion, fever Mode of Arrival: Ambulatory Source of Information: Patient Limitations: No Limitations Time Seen by Provider: 01/15/24 11:26 Description of Symptoms (Recalled from Triage Doc. by RN): PATIENT C/O RUNNY NOSE, FEVER, SORE THROAT, AND NAUSEA X 3 DAYS HEENT Symptoms (Recalled from RN notes): Yes Resp Symptoms (Recalled from RN notes): No Skin Symptoms (Recalled from RN notes): No MS Symptoms (Recalled from RN notes): No Functional Status (Recalled from RN notes): WNL History of Present Illness Provider Complaint: 23-year-old female presents for complaints of runny nose, fever, sore throat, and nausea for 3 days. 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 Medical History , STATE DIRECTOR) PCOS (polycystic ovarian syndrome) Adnexal tenderness Chronic post-traumatic stress disorder (PTSD) MDD (major depressive disorder), recurrent episode, moderate Generalized anxiety disorder with panic attacks Anxiety Depression Traumatic brain injury Surgical History , STATE DIRECTOR) History of breast surgery Family History , STATE DIRECTOR) Cancer Mother Social History , STATE DIRECTOR) Smoking Status: Current every day smoker tobacco type: cigarettes alcohol intake: current alcohol intake frequency: holidays/special occasions only substance use type: denies use current occupational status: unemployed and student (Nikki currently enrolled in college.) Travel in the last 8 weeks: None household members: family housing: house number of children: 0 ROS Obtained: Yes Systems reviewed as appropriate & no additional complaints except as documented Physical Exam General General appearance: alert and in no apparent distress ENT ENT exam: Present normal exam, normal oropharynx, mucous membranes moist and TM's normal bilaterally Respiratory Respiratory exam: Present normal lung sounds bilaterally Cardiovascular Cardiovascular exam: Present regular rate and normal rhythm Neurological Exam Neurological exam: Present alert and oriented X3 Skin Skin exam: Present warm and intact Medical Decision Making Medical Records Medical records reviewed: Yes I reviewed the patient's medical records. Screening: Per USPSTF and CDC recommendations, given the prevalence of disease in our region, it is our hospital?s policy to screen for HIV and viral Hepatitis for all patients aged 18 and over and those with ongoing risk factors. Hay Inquiry Pt receiving controlled substance: No Vital Signs: 01/15/24 11:10 Temperature 99.0 F Temperature Source Oral Pulse Rate [Left Brachial] 98 H Respiratory Rate 19 Blood Pressure [Left Arm] 131/77 Blood Pressure Mean [Left Arm] 95 Blood Pressure Source [Left Arm] Automatic Cuff Blood Pressure Position [Left Arm] Sitting 02 Sat by Pulse Oximetry 99 Oxygen Delivery Method Room Air
[2024-01-15 11:33] LABS: UTC Influenza A Antigen Negative (Negative); UTC Influenza B Antigen Negative (Negative); UTC Strep Screen (Rapid) Negative (Negative)
[2024-01-15 11:37] VITALS: BP 131/77; PULSE 98; RESP 19; TEMP 37.2; O2SAT 99
== END 2024-01-15 11:42 | disposition home or self-care (01) ==
PROVIDERS: Emergency Provider Nurse Practitioner Family
DX: J06.9 Acute upper respiratory infection, unspecified (principal)
CPT/HCPCS: 87635; 87804; 87880; 99213; G0381

== ENCOUNTER 2024-03-18 16:56 | Emergency (ER) | payer BC, MEDICAID, SELFPAY ==
[2024-03-18 17:22] VITALS: BP 121/64; PULSE 122; RESP 20; TEMP 37.6; O2SAT 95; BMI 31.6
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
[2024-03-18 17:34] LABS: UTC Strep Screen (Rapid) Positive (Negative)
[2024-03-18 17:51] VITALS: BP 121/64; PULSE 122; RESP 20; TEMP 37.6
== END 2024-03-18 17:54 | disposition home or self-care (01) ==
PROVIDERS: Emergency Provider Nurse Practitioner Family
DX: J02.0 Streptococcal pharyngitis (principal)
CPT/HCPCS: 87880; 99212; G0381

== ENCOUNTER 2024-08-01 16:03 | Outpatient (CLI) | payer BC, OTHER, SELFPAY ==
--- OUTSIDE RECORDS SUMMARY | 2024-08-01 16:06 | XMS_ITS | Clinical Summary ---
Author Organization [facility] Address [address] [place] [address] Care Team Providers Care Makeup Artistry Instructor Name Role Phone Anish Negrete MD Primary Care Provider Allergies Active Allergy Reactions Criticality Noted Date Comments Dust Mite Extract Unknown - Patient st ates they do not know rxn details Low 04/21/2016 Medications norgestimate-ethiny l estradiol (Sprintec 28) 0.25-35 MG-MCG tabletIndications:S econdary oligomenorrhea Take 1 tablet by mouth 1 (one) time each day. 28 tablet 12 3 Active Active Problems Problem Noted Date Diagnosed Date Oligomenorrhea 10/06/2022 Assessment & Plan (10/06/2022 12:56 PM EDT): - most recent period was 1 month ago - typical interval between periods is 6 months to 1 year - normal labs - explained to patient oligomenorrhea is likely secondary to PCOS - discussed starting hormonal agent to regulate periods. She would like to try OCPs. Sprintec Rx sent - discussed starting ovulation inducing medications in the future when patient is actively trying to get - patient given list of PCPs in [facility] 3 months Amenorrhea 09/22/2022 Assessment & Plan (09/22/2022 10:59 AM EDT): -TVUS- normal uterus, normal ovaries with multiple follicles -Uterine bleeding after stopping OCPs- only 1 episode- has resolved now -CBC WNL at OSH -Ordered HbA1c, TSH, FSH, Estradiol, testosterone, Prolactin, 17- hydroxyprogesterone for amenorrhea workup -Pap at 23 years old -RTC in 2 weeks to discuss results, treatment and fertility Family History Medical History Relation Name Comments Bipolar depression Father Bipolar depression Mother Cervical cancer Mother Other cancer Mother Conversions - Other Sister Exercise -induced asthma Relation Name Status Comments Father Mother Sister Social History Tobacco Use Types Packs/Day Years Used Date Smoking Tobacco: Never Smokeless Tobacco: Never Tobacco Cessation:Counseling Given: Not Answered Alcohol Use Standard Drinks/Week Comments Never 0 (1 standard drink = 0.6 oz pur e alcohol) PHQ-2 Answer Date Recorded Patient Health Questionnaire-2 Score 0 09/22/2022 PHQ-2A Answer Date Recorded Patient Health Questionnaire-2 Score 0 09/22/2022 Comments Unknown Sex and Gender Information Value Date Recorded Sex Assigned at Not on file Legal Sex Female 6:20 PM EDT Gender Identity Not on file Sexual Orientation Not on file Last Filed Vital Signs Vital Sign Reading Time Taken Comments Blood Pressure 108/66 10/06/2022 1:13 PM EDT Pulse 78 09/22/2022 9:25 AM EDT Temperature - - Respiratory Rate 16 09/22/2022 9:25 AM EDT Oxygen Saturation 100% 09/22/2022 9:25 AM EDT Inhaled Oxygen Concentration - - Weight 86 kg (189 lb 9.5 oz) 10/06/2022 1:13 PM EDT Height 162.6 cm (5' 4 ) 09/22/2022 9:25 AM EDT Body Mass Index 32.54 09/22/2022 9:25 AM EDT Plan of Treatment Health Maintenance Due Date Last Done Comments [facility]-HIV Screening 2002 [facility]-Hepatitis C Screening 2002 [facility]-/Child/Adol SDOH Screenings 2002 [facility]-Hepatitis B Vaccines (3 of 3 - 3-dose series) 02/15/2003 2002, 2002 HPV Vaccines (3 - 3-dose series) 05/08/2018 02/13/2018, 05/17/2017 [facility]- SDOH Screenings 01/27/2020 [facility]-Adult SDOH Screenings 01/27/2020 [facility]-Pap Smear 2023 [facility]-Depression Screening 09/23/2023 09/22/2022 [facility]-IARMA-15 Vaccine ( season) 2023 04/01/2021, 11/05/2020, 07/10/2020 [facility]-Influenza Vaccine (Season Ended) 2024 12/18/2012 [facility]-DTaP,Tdap,and Td Vaccines (7 - Td or Tdap) 03/14/2025 03/14/2015, 02/14/2006, 08/13/2003, Additional history exists [facility]-Zoster Vaccines (1 of 2) 01/27/2052 12/18/2012, 08/13/2003 [facility]-HIB Vaccines Aged Out 2002, 07/2002, 2002 No longer eligible based on patient's age to complete this topic [facility]-IPV Vaccines Completed 02/14/2006, 07/2002, 2002 [facility]-Varicella Vaccines Completed 12/18/2012, 2003 [facility]-Hepatitis A Vaccines Completed 03/14/2015, 12/08 [facility]-Obesity Intervention Completed 10/06/2022, 09/07 [facility]-Pneumococcal Vaccine: Pediatrics (0 to 5 Years) and At-Risk Patients (6 to 49 Years) Aged Out No longer eligible based on patient's age to complete this topic [facility]-Rotavirus Vaccines Aged Out No lo nger eligible based on patient's age to complete this topic Insurance DANILO Care Teams Makeup Artistry Instructor Relationship Specialty Start Date End Date Anish Negrete MD [address] [address] PCP - General 06/20/20
[2024-08-01 16:19] LABS: HIV 1 Ab ND; HIV 2 Ab ND
[2024-08-01 17:04] LABS: Basophils # 0.1 K/mm3 (0-0.2); Basophils % 0.6 % (0.1-2.0); Eosinophils # 0.3 Kmm3 (0.0-0.4); Eosinophils % 3.7 % (0.1-12.0); Hematocrit 40.4 % (37.0-47.0); Hemoglobin 13.2 g/dL (12.2-16.2); Immature Granulocytes # 0.01 10^3uL; Immature Granulocytes % 0.1 %; Lymphocytes # 3.7 K/mm3 (0.7-4.5); Lymphocytes % 48.1 % (10-50); Mean Corpuscular HGB Conc 32.7 g/dL (31.8-35.4); Mean Corpuscular Hemoglobin 28.4 pg (27.0-31.2); Mean Corpuscular Volume 87.1 fl (81-99); Mean Platelet Volume 9.1 fl (7.4-10.4); Monocytes # 0.5 K/mm3 (0.1-1.0); Monocytes % 6.7 % (1.7-9.3); Neutrophils # 3.2 K/mm3 (1.8-7.8); Neutrophils % 40.8 % (37.0-80.0); Nucleated Red Blood Cells # 0 10^3/uL; Nucleated Red Blood Cells % 0 %; Platelet Count 376 K/mm3 (142-424); Red Blood Count 4.64 M/mm3 (4.20-5.40); Red Cell Distribution Width 12.3 % (11.5-17.5); Red Cell Distribution Width-SD 39.4 fL; White Blood Count 7.8 K/mm3 (4.8-10.8)
[2024-08-01 17:31] LABS: Alanine Aminotransferase 18 U/L (12-78); Albumin Level 4.1 g/dl (3.5-5.0); Albumin/Globulin Ratio 1.4 (1.1-1.8); Alkaline Phosphatase 64 U/L (38-126); Anion Gap 12.6 mEq/L (5-15); Aspartate Amino Transferase 24 U/L (14-36); Bilirubin,Total 0.5 mg/dl (0.2-1.3); Blood Urea Nitrogen 12 mg/dl (7-17); Calcium 9.8 mg/dl (8.4-10.2); Carbon Dioxide 26 mmol/L (22.0-30.0); Chloride 102 mmol/L (98-107); Chol/HDL Ratio 3.1 (1-3.5); Cholesterol 163 mg/dl (140-200); Estimated Glomerular Filt Rate 125 ml/min (>60); GFR (African American) 151 ML/MIN (>60); Glucose 110 mg/dl (74-100); HDL Cholesterol 53 mg/dl (40-60); Potassium 3.6 mmoL/L (3.5-5.1); Sodium 137 mmol/L (136-145); Total Protein,Serum 7.1 g/dl (6.3-8.2); Triglycerides 310 mg/dl (30-150); VLDL Cholesterol 62 mg/dL (0-40)
[2024-08-01 17:42] LABS: Direct LDL Cholesterol 61.71 mg/dL (100-129)
[2024-08-01 17:48] LABS: 25-OH Vitamin D, Total 26.8 ng/mL (30-100)
[2024-08-01 18:03] LABS: Thyroid Stimulating Hormone 1.35 uIU/mL (0.465-4.68)
[2024-08-01 18:15] LABS: Hemoglobin A1C 5.9 % (4.0-6.0)
[2024-08-01 18:22] LABS: Vitamin B12 282 pg/mL (239-931)
[2024-08-01 18:51] LABS: Iron 114 ug/dL (37-170)
[2024-08-01 19:00] LABS: Total Iron Binding Capacity 379 ug/dL (265-497)
[2024-08-01 19:27] LABS: Ferritin 12.3 ng/ml (6.24-137)
[2024-08-02 09:21] LABS: HIV Screen 4th Generation wRfx Non Reactive (Non Reactive)
[2024-08-02 13:19] LABS: FSH 5.5 mIU/mL (.); LH 12.8 mIU/mL (.); Testosterone,Total 22 ng/dL (13-71); Triiodothyronine (T3) Total 102 ng/dL (71-180)
[2024-08-03 16:00] LABS: Miscellaneous Test SCANNED IMAGE
[2024-08-04 00:12] LABS: Estrogen 86 pg/mL (.)
== END 2024-08-01 23:59 | disposition home or self-care (01) ==
LOC: LAB 16:04
PROVIDERS: PCP Family Medicine Addiction Medicine; Visit Provider Family Medicine Addiction Medicine
DX: Z79.899 Other long term (current) drug therapy (principal)
CPT/HCPCS: 80053; 80061; 82306; 82607; 82672; 82728; 82746; 83001; 83002; 83036; 83540; 83550; 84146; 84403; 84439; 84443; 84480; 85025; 86703; G0432

== ENCOUNTER 2024-11-12 13:58 | Emergency (ER) | payer BC, OTHER, SELFPAY ==
--- OUTSIDE RECORDS SUMMARY | 2024-10-04 16:00 | XMS_ITS | Encounter Summary ---
Author Organization [facility] Address [address] [place] [address] Care Team Providers Care Die Grinder Name Role Phone Anish Negrete MD Primary Care Provider [phone] Reason for Visit * Reason Comments Amenorrhea Pt reports+ 4 years trying for + very irregular periods since menarche+ has high sperm count s/p semen analysis and testicular cancer+ consents to breast, pap, and std screening Encounter Details Date Type Department Care Team (Late st Contact Info) Description 10/04/2024 4:00 PM EDT Office Visit Obstetrics & Gynecology [address] [place] [address] Kayla Arizmendi, [employer] [address] [place] [address] Encounter for gynecological examination without abnormal finding (Primary Dx); Secondary oligomenorrhea; PCOS (polycystic ovarian syndrome); Screening examination for STI; Vaginal discharge; RLQ abdominal pain Social History Tobacco Use Types Packs/Day Years Used Date Smoking Tobacco: Never Smokeless Tobacco: Never Alcohol Use Standard Drinks/Week Comments Never 0 (1 standard drink = 0.6 oz pur e alcohol) PHQ-2 Answer Date Recorded Patient Health Questionnaire-2 Score 0 10/04/2024 PHQ-2A Answer Date Recorded Patient Health Questionnaire-2 Score 0 09/22/2022 Comments Unknown Sex and Gender Information Value Date Recorded Sex Assigned at Not on file Legal Sex Female 6:20 PM EDT Gender Identity Not on file Sexual Orientation Not on file documented as of this encounter Last Filed Vital Signs Vital Sign Reading Time Taken Comments Blood Pressure 115/78 10/04/2024 3:42 PM EDT Pulse 73 10/04/2024 3:42 PM EDT Temperature 36.7 C (98 F) 10/04/2024 3:42 PM EDT Respiratory Rate - - Oxygen Saturation 98% 10/04/2024 3:42 PM EDT Inhaled Oxygen Concentration - - Weight 89.1 kg (196 lb 6.9 oz) 10/04/2024 3:42 P M EDT Height - - Body Mass Index 33.72 09/22/2022 9:25 AM EDT documented in this encounter Functional Status * Over the past 2 weeks, how often have you been bothered by any of the following problems? Question Answer Date of Assessment Author Little interest or pleasure in doing things Not at all 10/04/2024 3:45 PM EDT Mar Mendoza RN Feeling down, depressed, or hopeless Not at all 10/04/2024 3:45 PM EDT Mar Mendoza RN Patient Health Questionnaire -2 Score 0 10/04/2024 3:45 PM EDT Mar Mendoza RN * How difficult have these problems made it for you to do your work, take care of things at home, or get along with other people? Answer Date of Assessment Author Not difficult at all 10/04/2024 3:45 PM EDT Mar Vega RN documented as of this encounter Miscellaneous Notes * Assessment & Plan Note - Kayla Arizmendi APRN - 10/04/2024 4:00 PM EDT Associated Problem(s): Oligomenorrhea Orders: POCT Urine ; Future * Addendum Note - Kayla Arizmendi APRN - 10/04/2024 4:00 PM EDTAddended by: KAYLA ARIZMENDI on: 10/11/2024 09:56 AM Modules accepted: Orders * Progress Notes - Kayla Arizmendi APRN - 10/04/2024 4:00 PM EDT Gynecology Health Maintenance Note Subjective Dorina Osei is a 24 y.o. here for a routine gynecology health maintenance visit. The following chart sections have been reviewed and updated: Allergies OB Status Here today for annual exam. Denies history of abnormal pap smear screenings in the past. Denies breast concerns. Denies bowel/bladder issues. Desires STI screening today. Denies immediate family history of breast or uterine cancers. Mom w/ ovarian cancer in her 30s. Hasconsidered genetic screening- declines referral at this time. C/o intermittent vaginal discharge and odor over the last several months. Denies irritation. No known exposure to STI. No noted changes to soaps/detergents/lubrications. Desires to discuss infertility. Has been TTC for 4 years w/o success. Hx of PCOS. Reports she has very irregular periods. LMP >6 months ago. Has not taken home UPT- states her mother told her thatthey are inaccurate in patients w/ PCOS. Has used OTC ovulation strips w/ negative results. She hasseen many providers for this in the past who always only want to start her on control pills . Not currently taking Metformin, but is interested in beginning. Partner has a hx of testicular cancer. Has semen analysis' regularly w/ normal results. LMP: >6 months ago Cycles: Irregular, hx of PCOS Contraception: None, TTC Pap: 2023- normal per pt. Requesting records. Review of Systems Constitutional: Negative. HENT: Negative. Eyes: Negative. Respiratory: Negative. Cardiovascular: Negative. Gastrointestinal: Negative. Endocrine: Negative. Genitourinary: Positive for menstrual problem and vaginal discharge. Vaginal odor Musculoskeletal: Negative. Skin: Negative. Allergic/Immunologic: Negative. Neurological: Negative. Hematological: Negative. Psychiatric/Behavioral: Negative. Objective Visit Vitals BP 115/78 Pulse 73 Temp 36.7 ??C (98 ??F) Body mass index is 33.72 kg/m??. Physical Exam Constitutional: Appearance: Normal appearance. Genitourinary: Vulva, bladder, rectum and urethral meatus normal. Right Labia: No rash, tenderness, lesions or skin changes. Left Labia: No tenderness, lesions, skin changes or rash. No vaginal discharge, tenderness or bleeding. Right Adnexa: tender. Right Adnexa: no mass present. Left Adnexa: not tender and no mass present. No cervical motion tenderness, discharge or friability. Uterus is not enlarged, tender or irregular. No uterine mass detected. Breasts: Right: Normal. Left: Normal. HENT: Head: Normocephalic and atraumatic. Right Ear: External ear normal. Left Ear: External ear normal. Nose: Nose normal. Cardiovascular: Rate and Rhythm: Normal rate. Pulmonary: Effort: Pulmonary effort is normal. Abdominal: General: Abdomen is flat. Palpations: Abdomen is soft. Musculoskeletal: General: Normal range of motion. Cervical back: Normal range of motion. Neurological: General: No focal deficit present. Mental Status: She is alert and oriented to person, place, and time. Skin: General: Skin is warm and dry. Psychiatric: Mood and Affect: Mood normal. Behavior: Behavior normal. Thought Content: Thought content normal. Judgment: Judgment normal. Vitals and nursing note reviewed. Exam conducted with a director child development center present. Assessment Assessment & Plan Encounter for gynecological examination without abnormal finding Secondary oligomenorrhea Orders: POCT Urine ; Future PCOS (polycystic ovarian syndrome) Orders: metFORMIN XR (Glucophage-XR) 500 MG 24 hr tablet; Take 1 tablet by mouth 1 time each day with dinner. Do not crush, chew, or split. POCT Urine ; Future Screening examination for STI Orders: Neisseria gonorrhea DNA by PCR; Future Chlamydia trachomatis DNA by PCR; Future Trichomonas Vaginalis Antigen; Future Hepatitis B Surface Antigen; Future Hepatitis C Antibody w/Reflex to HCV Quant PCR; Future Herpes Simplex Type 1 and Type 2 Glycoprotein G-Specific Antibodies, IgG; Future HIV 1 & 2 Antibody/Antigen Screen w/Reflex to HIV 1/2 Differentiation; Future Vaginal discharge Orders: Bacterial Vaginosis Panel, Reflex to Lactobacillus Recovery; Future Alanis Vaginitis Panel, Reflex to Fluconazole Resistance; Future RLQ abdominal pain - Pap UTD per pt- records release signed today. - STI screening ordered. Will notify pt of results when available and tx as indicated. - Vaginal culture sent to r/o infection. Will notify pt of results when available and tx as indicated. - RLQ pain noted on exam- will further assess at US appointment. - Discussed PCOS dx and effect on fertility. Interested in beginning Metformin today. Rx sent. Educated pt on medication, usage, and possible side effects. Will titrate dose based on patient tolerance. - Discussed need for menses every 3 months- will assess uterine lining at f/u visit and consider Provera at that time. - Reviewed health maintenance including diet, regular exercise, dietary supplementation and periodic exams. - Answered all patient questions. Agreeable to plan of care - RTC prn or annually. documented in this encounter Plan of Treatment Scheduled Orders Name Type Priority Associated Diagnoses Orde r Schedule Hepatitis B Surface Antigen Lab Routine Screening examination for STI Expected: 10/04/2024 (Approximate), Expires: 04/07/2026 Hepatitis C Antibody w/Reflex to HCV Quant PCR Lab Routine Screening examination for STI Expected: 10/04/2024, Expires: 04/07/2026 Herpes Simplex Type 1 and Type 2 Glycoprotein G-Specific Antibodies, IgG Lab Routine Screening examination for STI Expected: 10/04/2024 (Approximate), Expires: 04/06/2026 HIV 1 & 2 Antibody/Antigen Screen w/Reflex to HIV 1/2 Differentiation Lab Routine Screening examination for STI Expected: 10/04/2024 (Approximate) documented as of this encounter Procedures Procedure Name Priority Date/Time Associated Diagnosis Comments TRICHOMONAS VAGINALIS ANTIGEN Routine 10/04/2024 4:19 PM EDT Screening examination for STI CHLAMYDIA TRACHOMATIS DNA BY PCR Routine 10/04/2024 4:19 PM EDT Screening examination for STI ALANIS VAGINITIS PANEL,REFLEX TO FLUCONAZOLE RESISTANCE (SO) Routine 10/04/2024 4:19 PM EDT Vaginal discharge BACTERIAL VAGINOSIS PANEL,REFLEX TO LACTOBACILLUS RECOVERY (SO) Routine 10/04/2024 4:19 PM EDT Vaginal discharge NEISSERIA GONORRHEA DNA BY PCR Routine 10/04/2024 4:19 PM EDT Screening examination for STI POCT , URINE Routine 10/04/2024 4:18 PM EDT Secondary oligomenorrhea PCOS (polycystic ovarian syndrome) documented in this encounter Results * Alanis Vaginitis Panel, Reflex to Fluconazole Resistance (10/04/2024 4:19 PM EDT) See Scanned Result SEE SCANNED REPORT 10/10/2024 3:58 PM EDT [facility] Swab Endocervical structure / Unknown Non-blood Collection / Unknown 10/04/2024 4:19 PM EDT 10/04/2024 6:43 PM EDT us Kayla Arizmendi APRN LAB REF LAB BLOOD AND FLUID ORD Final Result Performing Organization Address City/[facility]/ZIP Co de Phone Number [facility] * Bacterial Vaginosis Panel, Reflex to Lactobacillus Recovery (10/04/2024 4:19 PM EDT) See Scanned Result SEE SCANNED REPORT 10/10/2024 3:59 PM EDT [facility] Swab Non-blood Collection / Unknown 10/04/2024 4:19 PM EDT 10/04/2024 6:42 PM EDT Kayla Arizmendi APRN LAB REF LAB BLOOD AND FLUID ORD Final Result Performing Organization Address [facility]/ZIP Co de Phone Number [facility] * Trichomonas Vaginalis Antigen (10/04/2024 4:19 PM EDT) Trichomonas vaginalis Antigen Result Negative Negative 10/05/2024 7:59 AM EDT [facility] Swab Vaginal structure / Unknown Non-blood Collection / Unknown 10/04/2024 4:19 PM EDT 10/04/2024 6:26 PM EDT Narrative [facility] - 10/05/2024 7:59 AM EDT This test was developed and its performance characteristics determined by [facility]. It has not been cleared or approved by the US Food and Drug Administration. FDA does not require this test to go through premarket FDA review. This test is used for clinical purposes. It should not be regarded as investigational or for research. This laboratory is certified under the Clinical Laboratory Improvement Amendments (CLIA) as qualified to perform high complexity clinical laboratory testing. Kayla Arizmendi APRN LAB MICROBIOLOGY - GENERAL ORDERABLES Final Result Performing Organization Address [facility] Co de Phone Number [facility] [address] [place] [address] * Chlamydia trachomatis DNA by PCR (10/04/2024 4:19 PM EDT) Chlamydia trachomatis DNA PCR Result Not Detected Not Detected 10/05/2024 11:07 AM EDT [facility] Swab Vaginal structure / Unknown Non-blood Collection / Unknown 10/04/2024 4:19 PM EDT 10/04/2024 6:24 PM EDT Narrative [facility] - 10/05/2024 11:07 AM EDT This test is performed by the [employer] instrument for Real Time PCR C. trachomatis and N. gonorrhea. This test is FDA approved for use with endocervical, vaginal, and urine specimens. This test is used for clinical purposes. It should not be regarded as invesigational or for research. The [facility] is certified under the Clinical Laboratory Improvement Amendments of 1988 (CLIA-88) as qualified to perform high complexity clinical laboratory testing. Kayla Arizmendi APRN LAB MICROBIOLOGY - GENERAL ORDERABLES Final Result Performing Organization Address [facility] de Phone Number [facility] [address] [place] [address] * Neisseria gonorrhea DNA by PCR (10/04/2024 4:19 PM EDT) Neisseria gonorrhea DNA PCR Result Not Detected Not Detected. 10/05/2024 11:07 AM EDT [facility] Swab Vaginal structure / Unknown Non-blood Collection / Unknown 10/04/2024 4:19 PM EDT 10/04/2024 6:24 PM EDT Narrative [facility] - 10/05/2024 11:07 AM EDT This test is performed by the [employer] [id number] instrument for Real Time PCR C. trachomatis and N. gonorrhea. This test is FDA approved for use with endocervical, vaginal, and urine specimens. This test is used for clinical purposes. It should not be regarded as invesigational or for research. The [facility] is certified under the Clinical Laboratory Improvement Amendments of 1988 (CLIA-88) as qualified to perform high complexity clinical laboratory testing. us Kayla Arizmendi APRN LAB MICROBIOLOGY - GENERAL ORDERABLES Final Result [facility] [address] [place] [address] * POCT Urine (10/04/2024 4:18 PM EDT) Urine - Point of Care Negative Negative - women after 7 weeks gestation and dilute urine (specific gravity <1.010) may have false negative results. Plasma HCG testing is recommended. Test performed at Point of Care. INTERNAL QC OK, PREG URINE yes KIT LOT NUMBER, PREG URINE [id number] KIT EXPIRATION DATE, PREG URINE 02/18/26 Urine Urine specimen obtained by clean catch procedure / Unknown 10/04/2024 4:18 PM EDT us Kayla Arizmendi APRN POINT OF CARE TEST ENTER/ED IT ORDERABLES Final Result documented in this encounter Visit Diagnoses Diagnosis Encounter for gynecological examination without abnormal finding- Primary Secondary oligomenorrhea Scanty or infrequent menstruation PCOS (polycystic ovarian syndrome) Polycystic ovaries Screening examination for STI Vaginal discharge Leukorrhea, not specified as infective RLQ abdominal pain Abdominal pain, right lower quadrant documented in this encounter Additional Health Concerns Assessment Noted Time A fall risk assessment has been complete d for the patient 10/04/2024 3:45 PM EDT A Body Mass Index follow-up plan has been documented for the patient 10/04/2024 4:29 PM EDT documented as of this encounter Care Teams Die Grinder Relationship Specialty Start Date End Date Anish Negrete MD [address] [address] PCP - General 06/20/20 documented as of this encounter
[2024-11-12 14:04] VITALS: BP 126/87; PULSE 86; RESP 15; TEMP 36.8; O2SAT 97; BMI 32.5
--- OUTSIDE RECORDS SUMMARY | 2024-11-12 14:15 | XMS_ITS | Clinical Summary ---
Author Organization Healthcare Address [address] [place] [address] Care Team Providers Care Drilling Inspector Name Role Phone Anish Negrete MD Primary Care Provider [phone] Allergies Active Allergy Reactions Criticality Noted Date Comments Dust Mite Extract Unknown - Patient st ates they do not know rxn details Low 04/21/2016 Medications norgestimate-ethin yl estradiol (Sprintec 28) 0.25-35 MG-MCG tabletIndications: Secondary oligomenorrhea Take 1 tablet by mouth 1 (one) time each day. 28 tablet 12 10/07/19 23 Active Additional Information Patient not taking.Reported on 10/04/2024 escitalopram (Lexapro) 10 MG tablet Take 1 tablet by mouth every morning. 09/13/19 25 Active metFORMIN XR (Glucophage-XR) 500 MG 24 hr tabletIndications: PCOS (polycystic ovarian syndrome) Take 1 tablet by mouth 1 time each day with dinner. Do not crush, chew, or split. 90 tablet 10/05/19 25 Active metroNIDAZOLE (Flagyl) 500 MG tabletIndications: Vaginal discharge Take 1 tablet by mouth 2 times a day for 7 days. 14 tablet 10/12/19 25 025 Active Problems Problem Noted Date Diagnosed Date Oligomenorrhea 10/06/2022 Assessment & Plan (10/04/2024 4:28 PM EDT): Orders: POCT Urine ; Future Assessment & Plan (10/06/2022 12:56 PM EDT): [...] - patient given list of PCPs in [place] - RTC 3 months Amenorrhea 09/22/2022 Assessment & Plan (09/22/2022 10:59 AM EDT): -TVUS- normal uterus, normal ovaries with multiple follicles -Uterine bleeding after stopping OCPs- only 1 episode- has resolved now -CBC WNL at OSH -Ordered HbA1c, TSH, FSH, Estradiol, testosterone, Prolactin, 17- hydroxyprogesterone for amenorrhea workup -Pap at 23 years old -RTC in 2 weeks to discuss results, treatment and fertility Encounters Date Type Department Care Team Description 10/10/2024 Results Follow-Up Obstetrics & Gynecology [address] [place] [address] Kayla Arizmendi APRN 10/04/2024 4:00 PM EDT Office Visit Obstetrics & Gynecology [address] [place] [address] Kayla Arizmendi APRN Encounter for gynecological examination without abnormal finding (Primary Dx); Secondary oligomenorrhea; PCOS (polycystic ovarian syndrome); Screening examination for STI; Vaginal discharge; RLQ abdominal pain 10/04/2024 Travel 10/04/2024 Telephone Obstetrics & Gynecology [address] [place] [address] Kayla Arizmendi APRN from Last 3 Months Family History Medical History Relation Name Comments [...] F) 10/04/2024 3:42 PM EDT Respiratory Rate 16 09/22/2022 9:25 AM EDT Oxygen Saturation 98% 10/04/2024 3:42 PM EDT Inhaled Oxygen Concentration - - Weight 89.1 kg (196 lb 6.9 oz) 10/04/2024 3:42 P M EDT Height 162.6 cm (5' 4 ) 09/22/2022 9:25 AM EDT Body Mass Index 33.72 09/22/2022 9:25 AM EDT Plan of Treatment Health Maintenance Due Date Last Done Comments [facility]-HIV Screening 2002 [facility]-Hepatitis C Screening 2002 [facility]-Infant/Child/Adol SDOH Screenings 2002 [facility]-Hepatitis B Vaccines (3 of 3 - 3-dose series) 02/15/2003 2002, 2002 HPV Vaccines (3 - 3-dose series) 05/08/2018 02/13/2018, 05/17/2017 [facility]- SDOH Screenings 01/27/2020 [facility]-Adult SDOH Screenings 01/27/2020 [facility]-Pap Smear 2023 [id number]-[id number]-60 Vaccine ( season) 2024 04/01/2021, 11/05/2020, 07/10/2020 [facility]-Influenza Vaccine (#1) 2024 12/18/2012 [facility]-DTaP,Tdap,and Td Vaccines (7 - Td or Tdap) 03/14/2025 03/14/2015, 02/14/2006, 08/13/2003, Additional history exists [facility]-Depression Screening 10/04/2025 10/04/2024 [facility]-Zoster Vaccines (1 of 2) 01/27/2052 12/18/2012, 08/13/2003 [facility]-HIB Vaccines Aged Out 2002, 07/2002, 2002 No longer eligible based on patient's age to complete this topic [facility]-IPV Vaccines Completed 02/14/2006, 07/2002, 2002 [facility]-Varicella Vaccines Completed 12/18/2012, 2003 [facility]-Hepatitis A Vaccines Completed 03/14/2015, 12/08 [facility]-Obesity Intervention Completed 025, 10/06/2022, 09/22/2022 [facility]-Pneumococcal Vaccine: Pediatrics (0 to 5 Years) and At-Risk Patients (6 to 49 Years) Aged Out No longer eligible based on patient's age to complete this topic [facility]-Rotavirus Vaccines Aged Out No lo nger eligible based on patient's age to complete this topic Procedures Procedure Name Priority Date/Time Associated Diagnosis Comments ALANIS VAGINITIS PANEL,REFLEX TO FLUCONAZOLE RESISTANCE (SO) Routine 10/04/2024 4:19 PM EDT Vaginal discharge BACTERIAL VAGINOSIS PANEL,REFLEX TO LACTOBACILLUS RECOVERY (SO) Routine 10/04/2024 4:19 PM EDT Vaginal discharge TRICHOMONAS VAGINALIS ANTIGEN Routine 10/04/2024 4:19 PM EDT Screening examination for STI CHLAMYDIA TRACHOMATIS DNA BY PCR Routine 10/04/2024 4:19 PM EDT Screening examination for STI NEISSERIA GONORRHEA DNA BY PCR Routine 10/04/2024 4:19 PM EDT Screening examination for STI POCT , URINE Routine 10/04/2024 4:18 PM EDT Secondary oligomenorrhea PCOS (polycystic ovarian syndrome) from Last 3 Months Results * Trichomonas Vaginalis Antigen (10/04/2024 4:19 PM EDT) Trichomonas vaginalis Antigen Result Negative Negative 10/05/2024 7:59 AM EDT [facility] Swab Vaginal structure / Unknown Non-blood Collection / Unknown 10/04/2024 4:19 PM EDT 10/04/2024 6:26 PM EDT Narrative [facility] - 10/05/2024 7:59 AM EDT This test was developed and its performance characteristics determined by [facility]. It has not been [...] high complexity clinical laboratory testing. Kayla Arizmendi [facility] MICROBIOLOGY - GENERAL ORDERABLES Final Result Performing Organization Address [facility] Co de Phone Number [facility] [address] [place] [address] * Chlamydia trachomatis DNA by PCR (10/04/2024 4:19 PM EDT) Chlamydia trachomatis DNA PCR Result Not Detected Not Detected 10/05/2024 11:07 AM EDT [facility] Swab Vaginal structure / Unknown Non-blood Collection / Unknown 10/04/2024 4:19 PM EDT 10/04/2024 6:24 PM EDT Narrative [facility] - 10/05/2024 11:07 AM EDT This test is performed by the [id number] instrument for Real Time PCR C. trachomatis and N. gonorrhea. This test is FDA approved for use with endocervical, vaginal, and urine specimens. This test is used for clinical purposes. It should not be regarded as invesigational or for research. The [facility] is certified under the Clinical Laboratory Improvement Amendments of 1988 (CLIA-88) as qualified to perform high complexity clinical laboratory testing. Kayla [employer] [facility] LAB MICROBIOLOGY - GENERAL ORDERABLES Final Result Performing Organization Address [facility] Co de Phone Number [facility] [address] [place] [address] * Alanis Vaginitis Panel, Reflex to Fluconazole Resistance (10/04/2024 4:19 PM EDT) See Scanned Result SEE SCANNED REPORT 10/10/2024 3:58 PM EDT [facility] Swab Endocervical structure / Unknown Non-blood Collection / Unknown 10/04/2024 4:19 PM EDT 10/04/2024 6:43 PM EDT Kayla Arizmendi APRN LAB REF LAB BLOOD AND FLUID ORD Final Result Performing Organization Address [facility] Co de Phone Number [facility] * Bacterial Vaginosis Panel, Reflex to Lactobacillus Recovery (10/04/2024 4:19 PM EDT) Pathologist [facility] See Scanned Result SEE SCANNED REPORT 10/10/2024 3:59 PM EDT [facility] Swab Non-blood Collection / Unknown 10/04/2024 4:19 PM EDT 10/04/2024 6:42 PM EDT Kayla Arizmendi APRN LAB REF LAB BLOOD AND FLUID ORD Final Result Performing Organization Address [facility] de Phone Number [facility] * Neisseria gonorrhea DNA by PCR (10/04/2024 4:19 PM EDT) Neisseria gonorrhea DNA PCR Result Not Detected Not Detected. 10/05/2024 11:07 AM EDT [facility] Swab Vaginal structure / Unknown Non-blood Collection / Unknown 10/04/2024 4:19 PM EDT 10/04/2024 6:24 PM EDT Narrative [facility] - 10/05/2024 11:07 AM EDT This test is performed by the [employer] instrument for Real Time PCR C. trachomatis and N. gonorrhea. This test is FDA approved for use with endocervical, vaginal, and urine specimens. This test is used for clinical purposes. It should not be regarded as invesigational or for research. The [facility] is certified under the Clinical Laboratory Improvement Amendments of 1988 (CLIA-88) as qualified to perform high complexity clinical laboratory testing. Kayla Arizmendi APRN LAB MICROBIOLOGY - GENERAL ORDERABLES Final Result [facility] [address] [place] [address] * POCT Urine (10/04/2024 4:18 PM EDT) [...] procedure / Unknown 10/04/2024 4:18 PM EDT Kayla Arizmendi APRN POINT OF CARE TEST ENTER/ED IT ORDERABLES Final Result from Last 3 Months Insurance [facility] MEDICAID Care Teams Drilling Inspector Relationship Specialty Start Date End Date Anish Negrtee MD [address] [address] PCP - General 06/20/20
--- OUTSIDE RECORDS SUMMARY | 2024-11-12 14:15 | XMS_ITS | Encounter Summary ---
Author Organization Healthcare Address [address] [place] [id number] Care Team Providers Care Qual Research Manager Name Role Phone Anish Negrete MD Primary Care Provider [phone] Encounter Details Date Type Department Care Team (Late st Contact Info) Description 10/10/2024 Results Follow-Up Obstetrics & Gynecology [address] [place] [address] Kayla Arizmendi, AUTOMATION ANALYST [address] [place] [address] Social History Tobacco Use Types Packs/Day Years [...] on file documented as of this encounter Plan of Treatment Not on file documented as of this encounter Visit Diagnoses Not on filedocumented in this encounter Additional Health Concerns Assessment Noted Time A fall risk assessment has been complete d for the patient 10/04/2024 3:45 PM EDT A Body Mass Index follow-up plan has been documented for the patient 10/04/2024 4:29 PM EDT documented as of this encounter Care Teams Qual Research Manager Relationship Specialty Start Date End Date Anish Negrete MD [address] [address] PCP - General 06/20/20 documented as of this encounter
--- OUTSIDE RECORDS SUMMARY | 2024-11-12 14:15 | XMS_ITS | Encounter Summary ---
Author Organization Healthcare Address [address] [id number] Care Team Providers Care Sheep Herder Name Role Phone Anish Negrete MD Primary Care Provider [phone] Encounter Details Date Type Department Care Team (Late st Contact Info) Description 10/04/2024 Telephone Obstetrics & Gynecology [address] [place] [address] Kayla Arizmendi, CLASSIFICATION AND TREATMENT DIRECTOR [address] [place] [address] Social History Tobacco Use Types [...] on file documented as of this encounter Miscellaneous Notes * Telephone Encounter - Venus Farnsworth - 10/04/2024 9:06 AM EDT 10/04/24 pt returned call/ r/s from 430 to 400 ZMT documented in this encounter Plan of Treatment Not on [...] documented as of this encounter Care Teams Sheep Herder Relationship Specialty Start Date End Date Anish Negrete MD [address] [address] PCP - General 06/20/20 documented as of this encounter
--- OUTSIDE RECORDS SUMMARY | 2024-11-12 14:15 | XMS_ITS | Encounter Summary ---
Author Organization Healthcare Address [address] [place] [address] Care Team Providers Care Mechanism Inspector Name Role Phone Anish Negrete MD Primary Care Provider [phone] Encounter Details Date Type Department Care Team (Latest Contact Info) Description 10/04/2024 Travel Social History Tobacco Use Types Packs/Day Years [...] on file documented as of this encounter Functional Status * Over the [...] at all 10/04/2024 3:45 PM EDT Mar eVga RN documented as of this encounter Plan of [...] documented as of this encounter Care Teams Mechanism Inspector Relationship Specialty Start Date End Date Anish Negrete MD [address] [address] PCP - General 06/20/20 documented as of this encounter
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
[2024-11-12 14:37] VITALS: BP 102/64; PULSE 78; RESP 15; TEMP 36.8; O2SAT 100
== END 2024-11-12 14:38 | disposition home or self-care (01) ==
PROVIDERS: Emergency Provider Student in an Organized Health Care Education/Training Program; PCP Family Medicine Addiction Medicine
DX: J22 Unspecified acute lower respiratory infection (principal); J30.2 Other seasonal allergic rhinitis
CPT/HCPCS: 99282

== ENCOUNTER 2024-11-15 16:23 | Outpatient (CLI) | payer BC, OTHER, SELFPAY ==
[2024-11-15 18:04] LABS: Cholesterol 202 mg/dl (140-200); HDL Cholesterol 62 mg/dl (40-60); Triglycerides 390 mg/dl (30-150)
[2024-11-15 18:17] LABS: 25-OH Vitamin D, Total 29.0 ng/mL (30-100)
== END 2024-11-15 23:59 | disposition home or self-care (01) ==
LOC: LAB 16:25
PROVIDERS: PCP Family Medicine Addiction Medicine; Visit Provider Family Medicine Addiction Medicine
DX: Z01.89 Encounter for other specified special examinations (principal)
CPT/HCPCS: 36415; 80061; 82306

== ENCOUNTER 2025-01-12 08:31 | Outpatient (CLI) | payer BC, OTHER, SELFPAY | END 2025-01-12 23:59 | disposition home or self-care (01) | LOC: LAB.DROPOF 01-14 08:31 | PROVIDERS: PCP Family Medicine Addiction Medicine; Visit Provider Nurse Practitioner Family | DX: J02.9 Acute pharyngitis, unspecified (principal) | CPT/HCPCS: 87070 ==

== ENCOUNTER 2025-01-12 09:38 | Emergency (ER) | payer BC, OTHER, SELFPAY ==
--- OUTSIDE RECORDS SUMMARY | 2025-01-11 13:15 | XMS_ITS | Encounter Summary ---
Author Organization Healthcare Address [address] [place] [address] Care Team Providers Care Overlay Plastician Name Role Phone Anish Negrete MD Primary Care Provider [phone] Reason for Referral * Genetic Testing (Routine) - Pending Review Specialty Diagnoses / Procedures Referred By Contsarahi t Referred To Contact Lab Diagnoses Encounter for gynecological examination without abnormal finding Procedures MTHFR Mutation Detection Yoan Ludwig MD [address] [place] [address] Phone: tel: fax: Referral ID Status Reason Start Date Expiration Date V isits Requested Visits Authorized [id number] Pending Review 01/11/2025 07/13/2026 1 1 Reason for Visit * Reason Comments Procedure Here to discuss ivf today, however thinks she may be , Upt today Encounter Details Date Type Department Care Team (Late Contact Info) Description 01/11/2025 1:15 PM EST Office Visit Obstetrics & Gynecology [address] [place] [address] Yoan Ludwig MD [address] [place] [address] Encounter for preconception consultation (Primary Dx); Irregular menstruation, unspecified; PCOS (polycystic ovarian syndrome); Family history of blood dyscrasia Social History Tobacco Use Types Packs/Day Years Used Date Smoking Tobacco: Never Smokeless Tobacco: Never Alcohol Use Standard Drinks/Week Comments Never 0 (1 standard drink = 0.6 oz pur e alcohol) PHQ-2 Answer Date Recorded Patient Health Questionnaire-2 Score 0 01/11/2025 PHQ-9 Answer Date Recorded Patient Health Questionnaire-9 Score 0 01/11/2025 PHQ-2A Answer Date Recorded Patient Health Questionnaire-2 Score 0 09/22/2022 Comments Unknown Sex and Gender Information Value Date Recorded Sex Assigned at Not on file Legal Sex Female 6:20 PM EDT Gender Identity Not on file Sexual Orientation Not on file documented as of this encounter Last Filed Vital Signs Vital Sign Reading Time Taken Comments Blood Pressure 130/80 01/11/2025 1:36 PM EST Pulse 80 01/11/2025 1:36 PM EST Temperature 37.2 C (99 F) 01/11/2025 1:36 PM EST Respiratory Rate - - Oxygen Saturation 99% 01/11/2025 1:36 PM EST Inhaled Oxygen Concentration - - Weight 86.2 kg (190 lb) 01/11/2025 1:36 PM EST Height - - Body Mass Index 32.61 09/22/2022 9:25 AM EDT documented in this encounter Functional Status * Over the past 2 weeks, how often have you been bothered by any of the following problems? Question Answer Date of Assessment Author Little interest or pleasure in doing things Not at all 01/11/2025 1:37 PM Shama Gipson Feeling down, depressed, or hopeless Not at all 06/2024 1:37 PM Shama Gipson Patient Health Questionnaire-2 Score 0 06/2024 1:37 PM Shama Gipson * Question Answer Date of Assessment Author Trouble falling or staying a sleep, or sleeping too much Not at all 01/11/2025 1:37 PM Shama Gipson Feeling tired or having maribel le energy Not at all 01/11/2025 1:37 PM Shama Gipson Poor appetite or overeating Not at all 01/11/2025 1: 37 PM Shama Gipson Feeling bad about yourself - or that you are a failure or have let yourself or your family down Not at all 01/11/2025 1:37 PM Shama Gipson Trouble concentrating on thi ngs, such as reading the newspaper or watching television Not at all 01/11/2025 1:37 PM Shama Gipson Moving or speaking so slowly that other people could have noticed? Or the opposite - being so fidgety or restless that you have been moving around a lot more than usual. Not at all 01/11/2025 1:37 PM Shama Gipson Thoughts that you would be b nubia off or hurting yourself in some way Not at all 01/11/2025 1:37 PM Shama Gipson Patient Health Questionnaire-9 Score 0 06/2024 1:37 PM Shama Gipson * How difficult have these problems made it for you to do your work, take care of things at home, or get along with other people? Answer Date of Assessment Author Not difficult at all 01/11/2025 1:37 PM Shama Vu documented as of this encounter Miscellaneous Notes * Progress Notes - Yoan Ludwig MD - 01/11/2025 1:15 PM EST Gynecology Note Subjective Dorina Osei is a 24 y.o. here for a f/u gynecology visit. The following chart sections have been reviewed and updated: Allergies Meds Here today for discussion + plan for fertility concerns - see below notes. Irregular menses - H/O PCOS. H/O Testicular CA - in remission - had SA 2 years ago - low counts - around 1 million. Denies history of abnormal pap smear screenings in the past. Denies breast concerns. Denies bowel/bladder issues. Desires STI screening today. Denies immediate family history of breast or uterine cancers. Mom w/ ovarian cancer in her 30s. Hasconsidered genetic screening- declines referral at this time. Desires to discuss infertility. Has been TTC for 4 years w/o success. Hx of PCOS. Reports she has very irregular periods. Has used OTC ovulation strips w/ negative results. She has seen many providers for this in the past who always only want to start her on control pills . Not currently taking Metformin, but is interested in beginning. Partner has a hx of testicular cancer. Cycles: Irregular, hx of PCOS Contraception: None, TTC Pap: 2023 - normal per pt. Requesting records. For plan - today is D22. Of note, gm with H/O MTHFR - she has not been tested. Review of Systems Constitutional: Negative. HENT: Negative. Eyes: Negative. Respiratory: Negative. Cardiovascular: Negative. Gastrointestinal: Negative. Endocrine: Negative. Genitourinary: Positive for menstrual problem. Musculoskeletal: Negative. Skin: Negative. Allergic/Immunologic: Negative. Neurological: Negative. Hematological: Negative. Psychiatric/Behavioral: Negative. Objective Visit Vitals BP 130/80 Pulse 80 Temp 37.2 ??C (99 ??F) Body mass index is 32.61 kg/m??. Physical Exam Constitutional: Appearance: Normal appearance. HENT: Head: Normocephalic and atraumatic. Right Ear: External ear normal. Left Ear: External ear normal. Nose: Nose normal. Cardiovascular: Rate and Rhythm: Normal rate. Pulmonary: Effort: Pulmonary effort is normal. Musculoskeletal: General: Normal range of motion. Cervical back: Normal range of motion. Neurological: General: No focal deficit present. Mental Status: She is alert and oriented to person, place, and time. Psychiatric: Mood and Affect: Mood normal. Behavior: Behavior normal. Thought Content: Thought content normal. Judgment: Judgment normal. Vitals and nursing note reviewed. Assessment Assessment & Plan Encounter for preconception consultation Orders: POCT Urine Progesterone; Future TSH; Future Free T4, Plasma MTHFR Mutation Detection CBC and differential; Future hCG, Total Beta, Quantitative, Plasma; Future Homocysteine (cardio), FPIA; Future Irregular menstruation, unspecified PCOS (polycystic ovarian syndrome) Family history of blood dyscrasia Discussed plan. to get repeat SA + start [employer]. She will start PNV + labs today. See above. Needs D14 US. With all data, will create plan. Voices agreement. Start PNV. A total of 30 minutes was spent on this visit with at least more than 50% of the encounter spent incounseling and/or coordinating care including reviewing previous notes, counseling the patient on their identified issues as indicated in the note, discussing previous and/or ordered tests or imaging, prescribing/refilling medications, and documenting the findings in this note, as well as laying out a specific plan of action for this patient. documented in this encounter Plan of Treatment Pending Results Name Type Priority Associated Diagnoses Date /Time MTHFR Mutation Detection Lab Routine Encounter for preconception consultation 01/11/2025 1:56 PM EST documented as of this encounter Procedures Procedure Name Priority Date/Time Associated Diagnosis Comments HOMOCYSTEINE Routine 01/11/2025 1:56 PM EST Encounter for preconception consultation PROGESTERONE III Routine 01/11/2025 1:56 PM EST Encounter for preconception consultation CBC WITH AUTO DIFFERENTIAL Routine 01/11/2025 1:56 PM EST Encounter for preconception consultation HCG, QUANTITATIVE Routine 01/11/2025 1:5 6 PM EST Encounter for preconception consultation TSH Routine 01/11/2025 1:56 PM EST Encounter for preconception consultation FREE T4, PLASMA Routine 01/11/2025 1:56 PM EST Encounter for preconception consultation POCT , URINE Routine 01/11/2025 1:45 PM EST Encounter for preconception consultation documented in this encounter Results * Homocysteine (cardio), FPIA (01/11/2025 1:56 PM EST) Homocysteine 7.5 5.0 - 15.0 umol/L 01/11/2025 7:35 PM EST [facility] Blood Venous blood specimen / Unknown Venipuncture / Unknown 01/11/2025 1:56 PM EST 01/11/2025 6:37 PM EST us Yoan Ludwig MD LAB BLOOD ORDERABLES Final Resu lt [facility] [address] [place] [address] * hCG, Total Beta, Quantitative, Plasma (01/11/2025 1:56 PM EST) hCG, Total Beta <1 <5 mIU/mL 7:05 PM EST [facility] Blood Venous blood specimen / Unknown Venipuncture / Unknown 01/11/2025 1:56 PM EST 01/11/2025 6:26 PM EST Narrative [facility] - 01/11/2025 7:05 PM EST Patients: Normal Range Premenopausal Female < 5 mIU/mL Male < 3 mIU/mL Postmenopausal Female < 8 mIU/mL The She[employer] Elecsys hCG+beta assay is standardized to the 4th IS for Chorionic Gonadotropin. The combination of the specific monoclonal antibodies used in this assay recognizes the holo-hormone, nicked forms of hCG, the Beta-core Fragment and the free beta-subunit. Elevated hCG concentrations not associated with are found in patients with gestational trophoblastic disease and choriocarcinoma as well as germ cell, ovarian, bladder, pancreas, stomach, lung and liver tumors. Performed by the Shelia electrochemiluminescent immunoassay which is traceable to the 4th International Standard for hCG (NIBSC 75/589). Results obtained with different test methods or kits cannot be used interchangeably. us Yoan Ludwig MD LAB BLOOD ORDERABLES Final Resu lt [facility] [address] [place] [address] * (ABNORMAL) CBC and differential (01/11/2025 1:56 PM EST) WBC Count 5.08 3.70 - 10.30 10*3/uL LAB HEMATOLOGY METHOD 01/11/2025 6:40 PM EST [facility] RBC Count 4.27 3.90 - 5.20 10*6/uL LAB HEMATOLOGY METHOD 01/11/2025 6:40 PM EST [facility] HGB 12.5 11.2 - 15.7 g/dL LAB HEMATOLOGY METHOD 01/11/2025 6:40 PM EST [facility] HCT 38.2 34.0 - 45.0 % LAB HEMATOLOGY METHOD 01/11/2025 6:40 PM EST [facility] Platelet Count 461(H) 155 - 369 10*3/uL LAB HEMATOLOGY METHOD 01/11/2025 6:40 PM EST [facility] MCV 90 79 - 98 fL LAB HEMATOLOGY METHOD 01/11/2025 6:40 PM [facility] MCH 29.3 26.0 - 32.0 pg LAB HEMATOLOGY METHOD 01/11/2025 6:40 PM [facility] MCHC 32.7 30.7 - 35.5 g/dL LAB HEMATOLOGY METHOD 01/11/2025 6:40 PM [facility] RDW 12.2 11.5 - 14.5 % LAB HEMATOLOGY METHOD 01/11/2025 6:40 PM EST [facility] MPV 9.1 8.8 - 12.5 fL LAB HEMATOLOGY METHOD 01/11/2025 6:40 PM [facility] nRBC 0.0 <=0.0 per 100 WBCs LAB HEMATOLOGY METHOD 01/11/2025 6:40 PM [facility] Differential Type Automated LAB HEMATOLOGY METHOD 01/11/2025 6:40 PM [facility] Neutrophils % 37 % LAB HEMATOLOGY METHOD 01/11/2025 6:40 PM [facility] Lymphocytes % 46 % LAB HEMATOLOGY METHOD 01/11/2025 6:40 PM [facility] Monocytes % 13 % LAB HEMATOLOGY METHOD 01/11/2025 6:40 PM [facility] Eosinophils % 3 % LAB HEMATOLOGY METHOD 01/11/2025 6:40 PM [facility] Basophils % 1 % LAB HEMATOLOGY METHOD 01/11/2025 6:40 PM [facility] Immature Granulocytes % 0 % LAB HEMATOLOGY METHOD 01/11/2025 6:40 PM [facility] Neutrophils Absolute 1.87 1.60 - 6.10 10*3/uL LAB HEMATOLOGY METHOD 01/11/2025 6:40 PM EST [facility] Lymphocytes Absolute 2.34 1.20 - 3.90 10*3/uL LAB HEMATOLOGY METHOD 01/11/2025 6:40 PM [facility] Monocytes Absolute 0.67 0.30 - 0.90 10*3/uL LAB HEMATOLOGY METHOD 01/11/2025 6:40 PM EST [facility] Eosinophils Absolute 0.13 0.00 - 0.50 10*3/uL LAB HEMATOLOGY METHOD 01/11/2025 6:40 PM [facility] Basophils Absolute 0.06 0.00 - 0.10 10*3/uL LAB HEMATOLOGY METHOD 01/11/2025 6:40 PM EST [facility] Immature Granulocytes Absolute 0.01 0.00 - 0.06 10*3/uL LAB HEMATOLOGY METHOD 01/11/2025 6:40 PM EST [facility] Blood Venous blood specimen / Unknown Venipuncture / Unknown 01/11/2025 1:56 PM EST 01/11/2025 6:26 PM EST Narrative [facility] - 01/11/2025 6:40 PM EST Therapeutic decision making should be based on absolute values, rather than percentages. Result Pete Ludwig MD LAB BLOOD ORDERABLES Final Resu lt Performing Organization Address [facility] [place] [address] * Free T4, Plasma (01/11/2025 1:56 PM EST) Free T4, Plasma 1.2 0.8 - 1.7 ng/dL 01/11/2025 7:05 PM EST [facility] Blood Venous blood specimen / Unknown Venipuncture / Unknown 01/11/2025 1:56 PM EST 01/11/2025 6:26 PM EST Narrative [facility] - 01/11/2025 7:05 PM EST Free T4 Trimester Specific Ranges 1st Trimester 0.9 - 1.50 ng/dL 2nd Trimester 0.7 - 1.40 ng/dL 3rd Trimester 0.7 - 1.24 ng/dL us Yoan Ludwig MD LAB BLOOD ORDERABLES Final Resu lt Performing Organization Address City/[facility]/[place]IP [place] [address] * TSH (01/11/2025 1:56 PM EST) Thyroid Stimulating Hormone, Plasma 0.64 0.40 - 4.20 uIU/mL 01/11/2025 7:05 PM EST [facility] Blood Venous blood specimen / Unknown Venipuncture / Unknown 01/11/2025 1:56 PM EST 01/11/2025 6:26 PM EST Narrative [facility] - 01/11/2025 7:05 PM EST Trimester Specific Ranges TSH ( IU/mL) 1st Trimester 0.1 - 3.0 2nd Trimester 0.19 - 4.06 3rd Trimester 0.3 - 3.7 Result Pete Ludwig MD LAB BLOOD ORDERABLES Final Resu Performing Organization Address [facility] [place] [address] * Progesterone (01/11/2025 1:56 PM EST) [facility] Progesterone III <0.2 Reference Range not established ng/mL 01/11/2025 7:02 PM EST [facility] Blood Venous blood specimen / Unknown Venipuncture / Unknown 01/11/2025 1:56 PM EST 01/11/2025 6:27 PM EST Narrative [facility] - 01/11/2025 7:02 PM EST Menstrual Cycle Phase Reference Intervals: Females, 18 Y and up (ng/mL) Follicular <= 0.33 Ovulation <= 2.35 Luteal 0.5-21 Post-Menopausal <0.2 reference Intervals (ng/mL): 1st Trimester 11 - 45 2nd Trimester 25 - 84 3rd Trimester 58 - 214 Result Pete Ludwig MD LAB BLOOD ORDERABLES Final Resu Performing Organization Address [facility] [place] [address] * POCT Urine (01/11/2025 1:45 PM EST) [facility] Urine - Point of Care Negative Negative - women after 7 weeks gestation and dilute urine (specific gravity <1.010) may have false negative results. Plasma HCG testing is recommended. Test performed at Point of Care. INTERNAL QC OK, PREG URINE yes KIT LOT NUMBER, PREG URINE [id number] KIT EXPIRATION DATE, PREG URINE 12/07/2025 Urine Urine specimen obtained by clean catch procedure / Unknown 01/11/2025 1:45 PM EST Result Pete Ludwig MD POINT OF CARE TEST ENTER/EDIT O RDERABLES Final Result documented in this encounter Visit Diagnoses Diagnosis Encounter for preconception consultation- Primary Irregular menstruation, unspecified PCOS (polycystic ovarian syndrome) Polycystic ovaries Family history of blood dyscrasia documented in this encounter Additional Health Concerns Assessment Noted Time PHQ-9 Depression Total Score: 0 01/12/20 25 1:37 PM EST A fall risk assessment has been complete d for the patient 01/11/2025 1:37 PM EST A Body Mass Index follow-up plan has been documented for the patient 01/11/2025 2:32 PM EST documented as of this encounter Care Teams Overlay Plastician Relationship Specialty Start Date End Date Anish Negrete MD [address] [address] PCP - General 06/20/20 documented as of this encounter
--- OUTSIDE RECORDS SUMMARY | 2025-01-11 15:00 | XMS_ITS | Encounter Summary ---
Author Organization Healthcare Address [address] [place] [address] Care Team Providers Care Adjunct Trainer Name Role Phone Anish Negrete MD Primary Care Provider [phone] Encounter Details Date Type Department Care Team (Late st Contact Info) Description 01/11/2025 3:00 PM EST Pharmacist [facility] [address] [facility] [place] [address] Mayra Gramajo, PharmD None None Social History Tobacco Use Types Packs/Day Years [...] as of this encounter Miscellaneous Notes * Clinician Note - Mayra Gramajo, PharmD - 01/11/2025 3:00 PM EST [facility] Pharmacy New Patient Telehealth Referral Telehealth Statement Patient Verification Patient identity has been confirmed using name and date of ? Yes Authorizations and Agreements/Telemedicine Consent sent and consent confirmed? Yes Patient Location: Patient's Home Patient confirms they are physically located in [place]? Yes If the patient is not physically located in [place], the provider has confirmed with Legal thatthe provider is authorized to provide services in patient's stated location? N/A Provider Location: HealthCare Facility Audio and video or audio only? Audio and video Total visit time: 15 minutes Dorina Osei is a 24 y.o. female patient referred by provider Yoan Ludwig with [facility] ([facility]) to establish pharmacy care. Patient pharmacy insurance (if known): unknown - she did not have information at time of visit New non-specialty medication to be initiated: fertility medications TBD (proactive enrollment for future rx's) Indication: infertility Patient reports they have trialed and failed the following therapies for the above indication: nonereported Patient reports they prefer to obtain their medication via mail order. Reviewed scope of [facility] Pharmacy Services, including benefits investigation, prior authorization support, and options for pickup and mail order dispensing. If medication is a Specialty medication, reviewed patient management program and that a pharmacist would be in contact for additional discussion. Obtained and reviewed updated medication list and allergies with patient and documented in Epic. Allergies Dust mite extract Current Outpatient Medications Medication Instructions escitalopram (LEXAPRO) 10 mg, Every morning fenofibrate (TRICOR) 145 mg, Daily metFORMIN XR (GLUCOPHAGE-XR) 500 mg, Oral, Daily with dinner, Do not crush, chew, or split. Multiple Vitamin (multivitamin) tablet 1 tablet, Daily Provided patient information to access pharmacy website for individual pharmacy information and informed them they may expect a call with additional pharmacy information in the next 3 business days regarding status of prescription. Discussed next steps which include establishing shared relationship with provider via MOA, sending referral to request infertility medications, then proceeding with dispensing. Patient reports fertility medications are needed by the following date based on current cycle: TBD - proactive enrollment. Fertility provider enrollment completed? Yes Fertility prescriptions already received? No Patient enrolled in [facility] during this consult Yes documented in this encounter Plan of Treatment [...] documented as of this encounter Care Teams Adjunct Trainer Relationship Specialty Start Date End Date Anish Negrete MD [address] [address] PCP - General 06/20/20 documented as of this encounter
[2025-01-12 09:45] VITALS: BP 116/74; PULSE 63; RESP 16; TEMP 36.8; O2SAT 100; BMI 32.4
--- OUTSIDE RECORDS SUMMARY | 2025-01-12 09:49 | XMS_ITS | Encounter Summary ---
Author Organization [facility] Address [address] [place] [address] Care Team Providers Care Railroad Track Mechanic Name Role Phone Anish Negrete MD Primary Care Provider [phone] Encounter Details Date Type Department Care Team (Late st Contact Info) Description 01/11/2025 Telephone Obstetrics & Gynecology [address] [place] [address] Yoan Ludwig MD [address] [place] [address] Social History Tobacco Use Types [...] Shama Vu documented as of this encounter Plan of Treatment Not on file documented as of this encounter Visit Diagnoses Not on filedocumented in this encounter Additional Health Concerns Assessment Noted Time PHQ-9 Depression Total Score: 0 01/12/20 1:37 PM EST A fall risk assessment has been complete d for the patient 01/11/2025 1:37 PM EST A Body Mass Index follow-up plan has been documented for the patient 01/11/2025 2:32 PM EST documented as of this encounter Care Teams Railroad Track Mechanic Relationship Specialty Start Date End Date Anish Negrete MD [address] [address] PCP - General 06/20/20 documented as of this encounter
--- OUTSIDE RECORDS SUMMARY | 2025-01-12 09:50 | XMS_ITS | Encounter Summary ---
Author Organization Healthcare Address [address] [place] [address] Care Team Providers Care Director Of Brand Marketing Name Role Phone Anish Negrete MD Primary Care Provider [phone] Encounter Details Date Type Department Care Team (Late st Contact Info) Description 10/10/2024 Results Follow-Up Obstetrics & Gynecology [address] [place] [address] Kayla Arizmendi, KNOT BORER [address] [place] [address] Social History Tobacco Use Types [...] documented as of this encounter Care Teams Director Of Brand Marketing Relationship Specialty Start Date End Date Anish Negrete MD [address] [place] [address] PCP - General 06/20/20 documented as of this encounter
--- OUTSIDE RECORDS SUMMARY | 2025-01-12 09:50 | XMS_ITS | Encounter Summary ---
Author Organization Healthcare Address [address] [place] [address] Care Team Providers Care Child Advocate Name Role Phone Anish Negrete MD Primary Care Provider [phone] Encounter Details Date Type Department Care Team (Latest Contact Info) Description 01/11/2025 Travel Social History Tobacco Use Types Packs/Day [...] documented as of this encounter Care Teams Child Advocate Relationship Specialty Start Date End Date Anish Negrete MD [address] [place] [address] PCP - General 06/20/20 documented as of this encounter
--- OUTSIDE RECORDS SUMMARY | 2025-01-12 09:50 | XMS_ITS | Clinical Summary ---
Author Organization Healthcare Address [address] [place] [address] Care Team Providers Care Dairy Associate Name Role Phone Anish Negrete MD Primary Care Provider [phone] Allergies Active Allergy Reactions Criticality Noted Date Comments Dust Mite Extract Unknown - Patient st ates they do not know rxn details Low 04/21/2016 Medications escitalopram (Lexapro) 10 MG tablet Take 1 tablet by mouth every morning. 025 Active metFORMIN XR (Glucophage-XR) 500 MG 24 hr tabletIndications :PCOS (polycystic ovarian syndrome) Take 1 tablet by mouth 1 time each day with dinner. Do not crush, chew, or split. 90 tablet 025 Active Additional Information Patient not taking.Reason: reports she never started, Reported on 01/11/2025 fenofibrate (Tricor) 145 MG tablet Take 1 tablet by mouth daily. Active Multiple Vitamin (multivitamin) tablet Take 1 tablet by mouth daily. Active norgestimate-ethi nyl estradiol (Sprintec 28) 0.25-35 MG-MCG tabletIndications :Secondary oligomenorrhea Take 1 tablet by mouth 1 (one) time each day. 28 tablet 12 023 2024 Discontinued Active Problems Problem Noted Date Diagnosed Date [...] - patient given list of PCPs in [place] - RTC 3 months Amenorrhea 09/22/2022 Assessment [...] Encounters Date Type Department Care Team Description 01/11/2025 3:00 PM EST [facility] [address] [place] [address] Mayra Gramajo, PharmD 01/11/2025 1:15 PM EST Office Visit Obstetrics & Gynecology [address] [place] [address] Yoan Ludwig MD Encounter for preconception consultation (Primary Dx); Irregular menstruation, unspecified; PCOS (polycystic ovarian syndrome); Family history of blood dyscrasia 01/11/2025 Travel 01/11/2025 Telephone Obstetrics & Gynecology [address] [place] [address] Yoan Ludwig MD from Last 3 Months Family History Medical [...] F) 01/11/2025 1:36 PM EST Respiratory Rate 16 09/22/2022 9:25 AM EDT Oxygen Saturation 99% 01/11/2025 1:36 PM EST Inhaled Oxygen Concentration - - Weight 86.2 kg (190 lb) 01/11/2025 1:36 PM EST Height 162.6 cm (5' 4 ) 09/22/2022 9:25 AM EDT Body Mass Index 32.61 09/22/2022 9:25 AM EDT Plan of Treatment Health Maintenance Due Date Last Done Comments [facility]-HIV Screening 2002 [facility]-Hepatitis C Screening 2002 [facility]-Infant/Child/Adol SDOH Screenings 2002 [facility]-Hepatitis B Vaccines (3 of 3 - 3-dose series) 02/15/2003 2002, 2002 HPV Vaccines (3 - 3-dose series) 05/08/2018 02/13/2018, 05/17/2017 [facility]- SDOH Screenings 01/27/2020 [facility]-Adult SDOH Screenings 01/27/2020 [facility]-Pap Smear 2023 [id number] Vaccine ( season) 2024 04/01/2021, 11/05/2020, 07/10/2020 [facility]-Influenza Vaccine (#1) 2024 12/18/2012 [facility]-DTaP,Tdap,and Td Vaccines (7 - Td or Tdap) 03/14/2025 03/14/2015, 02/14/2006, 08/13/2003, Additional history exists [facility]-Depression Screening 01/11/2026 01/11/2025, 06/2024 [facility]-Zoster Vaccines (1 of 2) 01/27/2052 12/18/2012, 08/13/2003 [facility]-HIB Vaccines Aged Out 2002, 07/2002, 2002 No longer eligible based on patient's age to complete this topic [facility]-IPV Vaccines Completed 02/14/2006, 07/2002, 2002 [facility]-Varicella Vaccines Completed 12/18/2012, 2003 [facility]-Hepatitis A Vaccines Completed 03/14/2015, 12/08 [facility]-Obesity Intervention Completed 025, 10/04/2024, 10/06/2022, Additional history exists [facility]-Pneumococcal Vaccine: Pediatrics (0 to 5 Years) [...] 6 PM EST Encounter for preconception consultation CBC WITH AUTO DIFFERENTIAL Routine 01/11/2025 1:56 PM EST Encounter for preconception consultation TSH Routine 01/11/2025 1:56 PM EST Encounter for preconception consultation PROGESTERONE III Routine 01/11/2025 1:56 PM EST Encounter for preconception consultation FREE T4, PLASMA Routine 01/11/2025 1:56 PM EST Encounter for preconception consultation POCT , URINE Routine 01/11/2025 1:45 PM EST Encounter for preconception consultation from Last 3 Months Results * Homocysteine (cardio), FPIA (01/11/2025 1:56 PM EST) Homocysteine 7.5 5.0 - 15.0 umol/L 01/11/2025 7:35 PM EST [facility] Blood Venous blood specimen / Unknown Venipuncture / Unknown 01/11/2025 1:56 PM EST 01/11/2025 6:37 PM EST us Yoan Ludwig MD LAB BLOOD ORDERABLES Final Resu lt Performing Organization Address [facility] de Phone Number [facility] [address] [place] [address] * Progesterone (01/11/2025 1:56 PM EST) Pathologist [facility] [place] Progesterone III <0.2 Reference Range not established ng/mL 01/11/2025 7:02 PM EST [facility] Blood Venous blood specimen / Unknown Venipuncture / Unknown 01/11/2025 1:56 PM EST 01/11/2025 6:27 PM EST Narrative [facility] - 01/11/2025 7:02 PM EST Menstrual Cycle Phase Reference Intervals: Females, 18 Y and up (ng/mL) Follicular <= 0.33 Ovulation <= 2.35 Luteal 0.5-21 Post-Menopausal <0.2 reference Intervals (ng/mL): 1st Trimester 11 - 45 2nd Trimester 25 - 84 3rd Trimester 58 - 214 Result Pete Ludwig MD LAB BLOOD ORDERABLES Final Resu lt Performing Organization Address [facility] de Phone Number [facility] [address] [place] [address] * (ABNORMAL) CBC and differential (01/11/2025 1:56 PM EST) WBC Count 5.08 3.70 - 10.30 10*3/uL LAB HEMATOLOGY METHOD 01/11/2025 6:40 PM EST [facility] RBC Count 4.27 3.90 - 5.20 10*6/uL LAB HEMATOLOGY METHOD 01/11/2025 6:40 PM EST [facility] HGB 12.5 11.2 - 15.7 g/dL LAB HEMATOLOGY METHOD 01/11/2025 6:40 PM EST [facility] HCT 38.2 34.0 - 45.0 % LAB HEMATOLOGY METHOD 01/11/2025 6:40 PM EST [facility] Platelet Count 461(H) 155 - 369 10*3/uL LAB HEMATOLOGY METHOD 01/11/2025 6:40 PM [facility] MCV 90 79 - 98 fL LAB HEMATOLOGY METHOD 01/11/2025 6:40 PM [facility] MCH 29.3 26.0 - 32.0 pg LAB HEMATOLOGY METHOD 01/11/2025 6:40 PM EST [facility] MCHC 32.7 30.7 - 35.5 g/dL LAB HEMATOLOGY METHOD 01/11/2025 6:40 PM [facility] RDW 12.2 11.5 - 14.5 % LAB HEMATOLOGY METHOD 01/11/2025 6:40 PM [facility] MPV 9.1 8.8 - 12.5 fL LAB HEMATOLOGY METHOD 01/11/2025 6:40 PM [facility] nRBC 0.0 <=0.0 per 100 WBCs LAB HEMATOLOGY METHOD 01/11/2025 6:40 PM [facility] Differential Type Automated LAB HEMATOLOGY METHOD 01/11/2025 6:40 PM [facility] Neutrophils % 37 % LAB HEMATOLOGY METHOD 01/11/2025 6:40 PM [facility] Lymphocytes % 46 % LAB HEMATOLOGY METHOD 01/11/2025 6:40 PM [facility] Monocytes % 13 % LAB HEMATOLOGY METHOD 01/11/2025 6:40 PM [facility] Eosinophils % 3 % LAB HEMATOLOGY METHOD 01/11/2025 6:40 PM [facility] Basophils % 1 % LAB HEMATOLOGY METHOD 01/11/2025 6:40 PM [facility] Immature Granulocytes % 0 % LAB HEMATOLOGY METHOD 01/11/2025 6:40 PM [facility] Neutrophils Absolute 1.87 1.60 - 6.10 10*3/uL LAB HEMATOLOGY METHOD 01/11/2025 6:40 PM [facility] Lymphocytes Absolute 2.34 1.20 - 3.90 10*3/uL LAB HEMATOLOGY METHOD 01/11/2025 6:40 PM [facility] Monocytes Absolute 0.67 0.30 - 0.90 10*3/uL LAB HEMATOLOGY METHOD 01/11/2025 6:40 PM EST [facility] Eosinophils Absolute 0.13 0.00 - 0.50 10*3/uL LAB HEMATOLOGY METHOD 01/11/2025 6:40 PM EST [facility] Basophils Absolute 0.06 0.00 - 0.10 10*3/uL LAB HEMATOLOGY METHOD 01/11/2025 6:40 PM EST [facility] Immature Granulocytes Absolute 0.01 0.00 - 0.06 10*3/uL LAB HEMATOLOGY METHOD 01/11/2025 6:40 PM EST [facility] Blood Venous blood specimen / Unknown Venipuncture / Unknown 01/11/2025 1:56 PM EST 01/11/2025 6:[address] [facility] - 01/11/2025 6:40 PM EST Therapeutic decision making should be based on absolute values, rather than percentages. Yoan Ludwig MD LAB BLOOD ORDERABLES Final Resu lt [facility] [address] [place] [address] * hCG, Total Beta, Quantitative, Plasma (01/11/2025 1:56 PM EST) hCG, Total Beta <1 <5 mIU/mL 7:[address] [facility] Blood Venous blood specimen / Unknown Venipuncture / Unknown 01/11/2025 1:56 PM EST 01/11/2025 6:26 PM EST Narrative [facility] - 01/11/2025 7:05 PM EST [...] lung and liver tumors. Performed by the [email or web address] electrochemiluminescent immunoassay which is traceable to the 4th International Standard for hCG (MERGED WITH [facility] 75/589). Results obtained with different test methods or kits cannot be used interchangeably. Result Pete Ludwig MD LAB BLOOD ORDERABLES Final Resu lt Performing Organization Address [facility] [place] [address] * TSH (01/11/2025 1:56 PM EST) Thyroid Stimulating Hormone, Plasma 0.64 0.40 - 4.20 uIU/mL 01/11/2025 7:05 PM EST [facility] Blood Venous blood specimen / Unknown Venipuncture / Unknown 01/11/2025 1:56 PM EST 01/11/2025 6:[address] [facility] - 01/11/2025 7:05 PM EST Trimester Specific Ranges TSH ( IU/mL) 1st Trimester 0.1 - 3.0 2nd Trimester 0.19 - 4.06 3rd Trimester 0.3 - 3.7 Result Pete Ludwig MD LAB BLOOD ORDERABLES Final Resu lt Performing Organization Address [facility] [place] [address] * Free T4, Plasma (01/11/2025 1:56 PM EST) Free T4, Plasma 1.2 0.8 - 1.7 ng/dL 01/11/2025 7:05 PM EST [facility] Blood Venous blood specimen / Unknown Venipuncture / Unknown 01/11/2025 1:56 PM EST 01/11/2025 6:26 PM EST Narrative [facility] - 01/11/2025 7:05 PM EST Free T4 Trimester Specific Ranges 1st Trimester 0.9 - 1.50 ng/dL 2nd Trimester 0.7 - 1.40 ng/dL 3rd Trimester 0.7 - 1.24 ng/dL Result Pete Ludwig MD LAB BLOOD ORDERABLES Final Resu lt Performing Organization Address City/[facility]/ZIP Co de Phone Number [facility] [address] [place] [address] * POCT Urine (01/11/2025 1:45 PM EST) Urine - Point of Care Negative Negative [...] procedure / Unknown 01/11/2025 1:45 PM EST Yoan Ludwig MD POINT OF CARE TEST ENTER/EDIT O RDERABLES Final Result from Last 3 Months Insurance [facility] MED[facility] Care Teams Dairy Associate Relationship Specialty Start Date End Date Anish Negrete MD [address] [address] PCP - General 06/20/20
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
[2025-01-12] MEDS: IBUPROFEN 400 MG TABLET 800 MG PO (09:58)
[2025-01-12] MEDS: DEXAMETHASONE 4MG TABLET 10 MG PO (09:59)
[2025-01-12 10:00] LABS: Strep Scrn Group A (Rapid) Negative (Negative)
[2025-01-12 10:14] VITALS: BP 116/71; PULSE 65; RESP 18; TEMP 36.8; O2SAT 99
== END 2025-01-12 10:17 | disposition home or self-care (01) ==
PROVIDERS: Emergency Provider Student in an Organized Health Care Education/Training Program; PCP Family Medicine Addiction Medicine
DX: B00.2 Herpesviral gingivostomatitis and pharyngotonsillitis (principal); F17.210 Nicotine dependence, cigarettes, uncomplicated
CPT/HCPCS: 87430; 99282; 99283; J8540